=== PATIENT | female | born 1990 | race Caucasian/White ===

== ENCOUNTER 2017-07-24 10:23 | Emergency (ER) | payer MEDICAID, OTHER ==
[2017-07-24] MEDS ORDERED: ONDANSETRON 4 MG TAB.RAPDIS PO ONE (12:01)
[2017-07-24] MEDS ORDERED: NORMAL SALINE 1000 ML 1,000 ML IV ONE (12:04)
[2017-07-24 12:26] LABS: APPEARANCE,URINE SLIGHTLY-CLOUDY; BILIRUBIN,URINE NEGATIVE (NEGATIVE); GLUCOSE, URINE NEGATIVE (NEGATIVE); KETONES,URINE 80 mg/dL (NEGATIVE); LEUKOCYTE ESTERASE,URINE TRACE (NEGATIVE); NITRITE,URINE NEGATIVE (NEGATIVE); PROTEIN,URINE NEGATIVE (NEGATIVE); URINE SPECIFIC GRAVITY 1.023; UROBILINOGEN,URINE NEGATIVE mg/dL (<2.0)
--- NOTE | 2017-07-24 13:17 | ER Document Report ---
ED GI/ - General Chief Complaint: Vomiting Stated Complaint: VOMITING Time Seen by Provider: 07/24/17 11:59 Mode of Arrival: Ambulatory Information source: Patient Notes: Patient is a 27-year-old who presents at approximately 16 weeks for nausea and vomiting, dehydration. Patient was seen at [facility] this morning and they advised that she come here because she appeared dehydrated and needed IV fluids. Patient states that they just prescribed her Zofran this morning but that she has been taking Phenergan which is not been helping her nausea and vomiting. TRAVEL OUTSIDE OF THE [place] IN LAST 30 DAYS: No - Related Data Allergies/Adverse Reactions: No Known Allergies Allergy (Verified 07/24/17 10:51) Past Medical History - General Information source: Patient - Social History Smoking Status: Never Smoker Chew tobacco use (# tins/day): No Frequency of alcohol use: None Drug Abuse: None Family History: Reviewed & Not Pertinent Renal/ Medical History: Denies: Hx Peritoneal Dialysis Past Surgical History: Reports: Hx Oral Surgery, Hx Tonsillectomy - Immunizations Hx Diphtheria, Pertussis, Tetanus Vaccination: Yes Review of Systems - Review of Systems Constitutional: See HPI EENT: No symptoms reported Cardiovascular: No symptoms reported Respiratory: No symptoms reported Gastrointestinal: See HPI Genitourinary: No symptoms reported Female Genitourinary: See HPI Musculoskeletal: No symptoms reported Skin: No symptoms reported Hematologic/Lymphatic: No symptoms reported Neurological/Psychological: No symptoms reported Physical Exam - Vital signs Vitals: Temp Pulse Resp BP Pulse Ox 98.3 F 80 18 132/78 H 99 07/24/17 13:24 07/24/17 13:24 07/24/17 13:24 07/24/17 13:24 07/24/17 13:24 - Notes Notes: PHYSICAL EXAMINATION: GENERAL: Well-appearing and in no acute distress. HEAD: Atraumatic, normocephalic. EYES: Pupils equal round and reactive to light, extraocular movements intact, sclera anicteric, conjunctiva are normal. NECK: Normal range of motion, supple without lymphadenopathy LUNGS: CTAB and equal. No wheezes rales or rhonchi. HEART: Regular rate and rhythm without murmurs ABDOMEN: Soft, no tenderness. No guarding, no rebound BACK: no vertebral tenderness, normal ROM GI/: no CVA tenderness EXTREMITIES: Normal range of motion, no pitting edema. No cyanosis. NEUROLOGICAL: Cranial nerves grossly intact. Normal sensory/motor exams. PSYCH: Normal mood, normal affect. SKIN: Warm, Dry, normal turgor, no rashes or lesions noted Course - Re-evaluation Re-evalutation: 07/24/17 18:48 She has not vomited here in the emergency department at all. Patient feels better after IV fluids and Zofran,I will send her home with a prescription for Zofran. - Vital Signs Vital signs: Temp Pulse Resp BP Pulse Ox 98.3 F 80 18 132/78 H 99 07/24/17 13:24 07/24/17 13:24 07/24/17 13:24 07/24/17 13:24 07/24/17 13:24 - Laboratory Laboratory results interpreted by me: 07/24/17 12:00 Urine Ketones 80 H Ur Leukocyte Esterase TRACE H Discharge - Discharge Clinical Impression: Vomiting affecting Condition: Stable Disposition: HOME, SELF-CARE Instructions: Intravenous (IV) Fluids ([facility]), Vomiting ([facility]) Additional Instructions: Return immediately for any new or worsening symptoms. Drink plenty of fluids. Follow up with primary care provider, call tomorrow to make followup appointment. Prescriptions: Ondansetron [Zofran Odt 4 mg Tablet] 1 - 2 tab PO Q4H PRN #30 tab.rapdis PRN Reason: For Nausea/Vomiting Referrals: [facility] [Provider Group] - Follow up as needed
[2017-07-24 13:25] VITALS: BP 132/78
== END 2017-07-24 13:25 | disposition home or self-care (01) ==
LOC: ER 10:23
DX: O21.9 Vomiting of pregnancy, unspecified (principal); Z3A.00 Weeks of gestation of pregnancy not specified; Z79.899 Other long term (current) drug therapy
CPT/HCPCS: 99283; 96360; 81001; S0119; J7030

== ENCOUNTER 2017-12-19 14:10 | Outpatient (CLI) | payer OTHER | END 2017-12-19 14:50 | disposition home or self-care (01) | LOC: LC 14:10 | PROVIDERS: ATTEND Obstetrics & Gynecology Gynecology | PROC: 4A1HXCZ Monitoring of Products of Conception, Cardiac Rate, External Approach (ICD-10-PCS; principal; 2017-12-19) | DX: O24.419 Gestational diabetes mellitus in pregnancy, unspecified control (principal); Z3A.37 37 weeks gestation of pregnancy | CPT/HCPCS: 59025 ==

== ENCOUNTER 2017-12-20 22:45 | Outpatient (CLI) | payer OTHER ==
[2017-12-20 23:45] LABS: AMNISURE (ROM) NEGATIVE (NEGATIVE)
[2017-12-21 00:35] LABS: APPEARANCE,URINE CLOUDY; BILIRUBIN,URINE NEGATIVE (NEGATIVE); COLOR,URINE YELLOW; GLUCOSE, URINE NEGATIVE (NEGATIVE); KETONES,URINE 80 mg/dL (NEGATIVE); LEUKOCYTE ESTERASE,URINE TRACE (NEGATIVE); NITRITE,URINE NEGATIVE (NEGATIVE); PROTEIN,URINE 30 mg/dL (NEGATIVE)
[2017-12-21 00:46] LABS: URINE AMPHETAMINES SCREEN NEGATIVE; URINE BARBITURATES SCREEN NEGATIVE; URINE BENZODIAZEPINES SCREEN NEGATIVE; URINE COCAINE SCREEN NEGATIVE; URINE MARIJUANA (THC) SCREEN NEGATIVE; URINE METHADONE SCREEN NEGATIVE; URINE PHENCYCLIDINE SCREEN NEGATIVE
== END 2017-12-21 00:57 | disposition home or self-care (01) ==
LOC: LC 22:45
PROVIDERS: ATTEND Student in an Organized Health Care Education/Training Program
PROC: 4A1HXCZ Monitoring of Products of Conception, Cardiac Rate, External Approach (ICD-10-PCS; principal; 2017-12-20)
DX: O47.1 False labor at or after 37 completed weeks of gestation (principal); Z3A.37 37 weeks gestation of pregnancy
CPT/HCPCS: 59025; 80307; 81001; 84112

== ENCOUNTER 2017-12-23 21:42 | Inpatient (IN) | payer OTHER ==
--- NOTE | 2017-12-23 21:44 | Non Stress Test Report ---
Non Stress Test Datetime Report Generated by CPN: 12/23/2017 21:44 DEMOGRAPHIC EGA NST: 37.5 INDICATION Indication for Study: Ordered by Provider Indication for Study (NST) Other: GDM VITAL SIGNS Temperature - NST: 98.4 Pulse - NST: 83 RESP - NST: 18 NBPSYS NST: 125 NBPDIA NST: 66 URINE RESULTS Urine Protein, NST: Positive Urine Ketones - NST: Positive Urine Glucose - NST: Negative Urine Blood - NST: Negative MONITORING Monitor Explained: Monitor Explained; Test Explained; Patient Verbalized Understanding Monitor Explained: Monitor Explained; Test Explained; Patient Verbalized Understanding Time on Monitor: 12/20/2017 23:00 Time on Monitor: 12/19/2017 14:28 Time off Monitor: 12/21/2017 00:41 Time off Monitor: 12/19/2017 14:48 NST Duration: 101 NST Duration: 20 NST INTERVENTIONS NST Interventions: PO Hydration NST Interventions: None Physician Notified NST: Dr. Alan Physician Notified NST: J Senior CNM BABY A: [id number] BABY A Movement : Present Movement : Present Contraction Frequency : Irregular Contraction Frequency : 0 FHR Baseline : 150 FHR Baseline : 135 Accelerations : 15X15 Accelerations : 15X15 Decelerations : None Decelerations : None Variability : Moderate 6-25bpm Variability : Moderate 6-25bpm NST Review: Meets Criteria for Reactive NST NST Review: Meets Criteria for Reactive NST NST Review and Verified By : WALTER Cox Results: Reactive NST Results: Reactive NST REPORT Report Trigger: Send Report
[2017-12-23 22:12] LABS: APPEARANCE,URINE SLIGHTLY-CLOUDY; BILIRUBIN,URINE NEGATIVE (NEGATIVE); COLOR,URINE YELLOW; GLUCOSE, URINE NEGATIVE (NEGATIVE); KETONES,URINE NEGATIVE (NEGATIVE); LEUKOCYTE ESTERASE,URINE TRACE (NEGATIVE); NITRITE,URINE NEGATIVE (NEGATIVE); PROTEIN,URINE NEGATIVE (NEGATIVE); URINE SPECIFIC GRAVITY 1.004; UROBILINOGEN,URINE NEGATIVE mg/dL (<2.0)
[2017-12-23 22:22] LABS: UR PRO/CREAT RATIO RESULT 0.5 mg/mg (0.0-0.2); URINE AMPHETAMINES SCREEN NEGATIVE; URINE BARBITURATES SCREEN NEGATIVE; URINE BENZODIAZEPINES SCREEN NEGATIVE; URINE COCAINE SCREEN NEGATIVE; URINE CREATININE 31.4 mg/dL (16-327); URINE MARIJUANA (THC) SCREEN NEGATIVE; URINE METHADONE SCREEN NEGATIVE; URINE PHENCYCLIDINE SCREEN NEGATIVE; URINE PROTEIN 16.9 mg/dL (<12)
[2017-12-23 22:26] LABS: ABSOLUTE LYMPHOCYTES (AUTO) 2.1 10^3/uL (0.5-4.7); ABSOLUTE MONOCYTES (AUTO) 0.5 10^3/uL (0.1-1.4); ABSOLUTE NEUT (AUTO) 6.2 10^3/uL (1.7-8.2); BASOPHILS % (AUTO) 0.4 % (0-2); EOSINOPHILS % (AUTO) 0.3 % (0-6); HEMATOCRIT 33.1 % (36.0-47.0); HEMOGLOBIN 11.2 g/dL (12.0-15.5); MEAN CORPUSCULAR HEMOGLOBIN 28.1 pg (27.0-33.4); MEAN CORPUSCULAR HGB CONC 33.8 g/dL (32.0-36.0); MEAN CORPUSCULAR VOLUME 83 fl (80-97); MONOCYTES % (AUTO) 5.5 % (3-13); PLATELET COUNT 235 10^3/uL (150-450); RED BLOOD COUNT 3.98 10^6/uL (3.72-5.28); RED CELL DISTRIBUTION WIDTH 14.9 % (11.5-14.0); SEGMENTED NEUTROPHILS % (AUTO) 69.8 % (42-78); TOTAL CELLS COUNTED % (AUTO) 100 %; WHITE BLOOD COUNT 8.9 10^3/uL (4.0-10.5)
[2017-12-23 22:47] LABS: ALANINE AMINOTRANSFERASE 24 U/L (9-52); ALBUMIN 3.1 g/dL (3.5-5.0); ALKALINE PHOSPHATASE 115 U/L (38-126); ANION GAP 9 (5-19); ASPARTATE AMINO TRANSFERASE 16 U/L (14-36); BILIRUBIN,DIRECT 0.1 mg/dL (0.0-0.4); BILIRUBIN,TOTAL 0.2 mg/dL (0.2-1.3); BLOOD UREA NITROGEN 7 mg/dL (7-20); CALCIUM 9.9 mg/dL (8.4-10.2); CARBON DIOXIDE 21 mmol/L (22-30); CHLORIDE 106 mmol/L (98-107); GLUCOSE 116 mg/dL (75-110); LDH 442 U/L (313-618); POTASSIUM 3.8 mmol/L (3.6-5.0); SODIUM 136.2 mmol/L (137-145); TOTAL PROTEIN 5.6 g/dL (6.3-8.2)
[2017-12-23] MEDS ORDERED: MAGNESIUM SULFATE 4 GM/100 ML RTUPB IV ONE ×2 (22:54→23:00)
[2017-12-23] MEDS ORDERED: DINOPROSTONE 10 MG VAGINAL INSERT.SR PV PRN (22:57)
[2017-12-23] MEDS ORDERED: DINOPROSTONE 10 MG VAGINAL INSERT.SR ONE (23:00)
[2017-12-23] MEDS ORDERED: ACETAMINOPHEN 325 MG TABLET PO ONE (23:13)
[2017-12-23] MEDS ORDERED: ACETAMINOPHEN 325 MG TABLET ONE (23:15)
[2017-12-23] MEDS: MAGNESIUM SULFATE 20 GM/500 ML RTUINJ IV PRN (23:59)
[2017-12-24] MEDS: RINGERS SOLUTION,LACTATED 1,000 ML IV PRN
[2017-12-24] MEDS ORDERED: MAG HYDROX/AL HYDROX/SIMETH SUSP 30 ML UDCUP PO ONE (01:05)
[2017-12-24] MEDS ORDERED: MAG HYDROX/AL HYDROX/SIMETH SUSP 30 ML UDCUP ONE (01:11)
[2017-12-24] MEDS ORDERED: OXYCODONE-ACETAMINOPHEN 5-325 MG TABLET PO ONE (02:18)
[2017-12-24] MEDS ORDERED: OXYCODONE-ACETAMINOPHEN 5-325 MG TABLET ONE (02:22)
[2017-12-24] MEDS ORDERED: PROMETHAZINE HCL INJ 25 MG/1 ML VIAL IV ONE ×2 (02:56→03:03)
[2017-12-24] MEDS ORDERED: PROMETHAZINE HCL INJ 25 MG/1 ML VIAL ONE (02:59)
--- NOTE | 2017-12-24 02:59 | Admission Physical ---
Datetime Report Generated by CPN: 12/24/2017 02:59 CURRENT ADMISSION Chief Complaint: Other Chief Complaint Other: COY, swelling, elevated bp Indication for Induction: PreEclampsia Indication for Induction: Term, Intrauterine Admit Plan: Admit to Unit; Initiate Labor Induction Protocol ALLERGIES Medication Allergies: No Medication Allergies: No Known Allergies (12/23/2017) Latex: No Latex Allergies Food Allergies: None Environmental Allergies: None OBSTETRICAL HISTORY EDC: 01/05/2018 00:00 : 5 Para: 2 Term: 2 : 0 SAB: 2 IAB: 0 Livin Gestational Diabetes: Yes Rh Sensitization: No Incompetent Cervix: No ROBLES: No Infertility: No ART Treatment: No Uterine Anomaly: No IUGR: No Hx Previous C/S: No Macrosomia: Yes Hx Loss/Stillborn: No PIH: No Hx : No Placenta Previa/Abruption: No Depression/PP Depression: No PTL/PROM: No Post Hemorrhage: No Current Procedures: NST Obstetrical History Comments: G1- term baby boy 2008 G2- SAB 2010 G3- SAB 2011 G4- term baby boy 2013 G5- current, GDM diet controlled, obesity SEE RECORDS Alcohol: No Marijuana : No Cocaine: No Other Illicit Drugs: No Cigarettes: Never Smoker. [id number] MEDICAL HISTORY Diabetes: No Blood Transfusion: No Pulmonary Disease (Asthma, TB): No Breast Disease: No Hypertension: No [employer] Surgery: No Heart Disease: No Hosp/Surgery: No Autoimmune Disorder: No Anesthetic Complications: No Kidney Disease: No Abnormal Pap Smear: No Neuro/Epilepsy: No Psychiatric Disorders: No Other Medical Diseases: No Hepatitis/Liver Disease: No Significant Family History: No Varicosities/Phlebitis: No Trauma/Violence : No Thyroid Dysfunction: No INFECTIOUS HISTORY Gonorrhea: No Genital Herpes: No Chlamydia: No Tuberculosis: No Syphilis: No Hepatitis: No HIV/AIDS Exposure: No Rash or Viral Illness: No HPV: No PHYSICAL EXAM General: Normal HEENT: Normal Neurologic: Normal Thyroid: Normal Heart: Normal Lungs: Normal Breast: Deferred Back: Normal Abdomen: Normal Genitourinary Exam: Normal Extremities: Normal DTRs: Normal Pelvic Type: Adequate Vital Signs: Reviewed VAGINAL EXAM Dilatation: 0 Effacement: 0 MEMBRANES Pooling: Negative Membranes: Intact FETUS A EGA: 38.2 Monitoring: External US FHR- Baseline: 120 Variability: Minimal - Undetectable to <=5bpm Decelerations: None Presentation: Vertex Admit Comment: will treat head ache with phenergan PLANS FOR LABOR AND DELIVERY Labor and Delivery: None (Annotations: Data stored by [facility] on behalf of user) Pain Management: Epidural Feeding Preference: Formula Benefit of Breast Feed Discussed: Yes Circumcision: N/A INFORMED CONSENT Signature: with User ID: [email or web address]
[2017-12-24] MEDS ORDERED: ONDANSETRON HCL INJ/PF 4 MG/2 ML SDV IV PRN (09:25)
[2017-12-24] MEDS ORDERED: ONDANSETRON HCL INJ/PF 4 MG/2 ML SDV ONE (09:27)
[2017-12-24] MEDS ORDERED: OXYTOCIN/NORMAL SALINE 20 UNIT/1,000 ML RTUINJ IV PRN ×2 (12:16→21:10)
[2017-12-24] MEDS ORDERED: LIDOCAINE 1% INJ-PF (10 MG/ML) 30 ML SDV ONE (12:19)
[2017-12-24] MEDS ORDERED: OXYTOCIN/NORMAL SALINE 20 UNIT/1,000 ML RTUINJ ONE (12:19)
[2017-12-24] MEDS ORDERED: MISOPROSTOL 0.2 MG TABLET ONE (12:19)
--- NOTE | 2017-12-24 12:23 | L&D Progress Notes ---
PROGRESS NOTES Datetime Report Generated by CPN: 12/24/2017 12:22 PROGRESS NOTE Impression Other: IOL- pre-e stable Procedures: Sterile Vag Exam Plan: Continue Present Management; Induction Informed Consent Obtained: Vaginal Delivery; Induction of Labor; Risks, Benefits and Alternatives Discussed Vital Signs : Reviewed; Within Normal Limits Comment: S: feeling crampy, desires epidural for pain at some point. Denies headache, ruq pain or other concerns at this time O: VSS, cervidil removed, contractions and cervix as stated A: IOL @ [id number], progressing P: start pitocin induction at this time, epidural prn. Pt. asked questions and verbalized understanding. VAGINAL EXAM Dilatation: 3 Dilatation: 0 Effacement: 60 Effacement: 0 Station: -3 Contractions: 1.5-5 MEMBRANES Pooling: Negative Membranes: Intact FETUS A FHR - Baseline: 135 Monitoring: External US Decelerations: None FHR Category: Category I : 38.0 Presentation: Vertex SIGNATURE SIGNATURE: [id number];[id number];[id number] SIGNATURE: [id number];[id number] SIGNATURE: [id number] Assignment: Kenyatta Alan MD Signature: with User ID: Joseph : with User ID: Joseph
[2017-12-24 15:03] LABS: ABSOLUTE BASOPHILS # (AUTO) 0.1 10^3/uL (0.0-0.2); ABSOLUTE LYMPHOCYTES (AUTO) 1.3 10^3/uL (0.5-4.7); ABSOLUTE MONOCYTES (AUTO) 0.5 10^3/uL (0.1-1.4); ABSOLUTE NEUT (AUTO) 8.8 10^3/uL (1.7-8.2); BASOPHILS % (AUTO) 0.6 % (0-2); EOSINOPHILS % (AUTO) 0.1 % (0-6); HEMATOCRIT 32.2 % (36.0-47.0); HEMOGLOBIN 11.1 g/dL (12.0-15.5); LYMPHOCYTES % (AUTO) 12.5 % (13-45); MEAN CORPUSCULAR HEMOGLOBIN 28.3 pg (27.0-33.4); MEAN CORPUSCULAR HGB CONC 34.4 g/dL (32.0-36.0); MEAN CORPUSCULAR VOLUME 82 fl (80-97); MONOCYTES % (AUTO) 4.9 % (3-13); PLATELET COUNT 224 10^3/uL (150-450); RED BLOOD COUNT 3.92 10^6/uL (3.72-5.28); RED CELL DISTRIBUTION WIDTH 14.8 % (11.5-14.0); SEGMENTED NEUTROPHILS % (AUTO) 81.9 % (42-78); TOTAL CELLS COUNTED % (AUTO) 100 %; WHITE BLOOD COUNT 10.8 10^3/uL (4.0-10.5)
[2017-12-24] MEDS ORDERED: BUPIVACAINE HCL 0.25 % INJ/PF (2.5 MG/1 ML) 30 ML VIAL ONE (15:09)
[2017-12-24] MEDS ORDERED: FENTANYL/BUPIVACAINE/NS/PF 200 MCG/100 ML RTUINJ EPI ONE (15:09)
[2017-12-24] MEDS ORDERED: EPHEDRINE SULFATE INJ 50 MG/1 ML AMPULE ONE (15:09)
[2017-12-24 15:23] LABS: ALANINE AMINOTRANSFERASE 25 U/L (9-52); ALBUMIN 2.9 g/dL (3.5-5.0); ALKALINE PHOSPHATASE 130 U/L (38-126); ANION GAP 5 (5-19); ASPARTATE AMINO TRANSFERASE 17 U/L (14-36); BILIRUBIN,DIRECT 0.3 mg/dL (0.0-0.4); BILIRUBIN,TOTAL 0.4 mg/dL (0.2-1.3); BLOOD UREA NITROGEN 3 mg/dL (7-20); CALCIUM 7.4 mg/dL (8.4-10.2); CARBON DIOXIDE 21 mmol/L (22-30); CHLORIDE 109 mmol/L (98-107); GLUCOSE 78 mg/dL (75-110); LDH 447 U/L (313-618); POTASSIUM 3.7 mmol/L (3.6-5.0); SODIUM 134.7 mmol/L (137-145); TOTAL PROTEIN 5.6 g/dL (6.3-8.2); URIC ACID 5.3 mg/dL (2.5-6.2)
--- NOTE | 2017-12-24 16:41 | L&D Progress Notes ---
PROGRESS NOTES Datetime Report Generated by CPN: 12/24/2017 16:41 PROGRESS NOTE Impression Other: IOL- stable, progressing Procedures: Artificial ROM; Sterile Vag Exam Plan: Continue Present Management; Induction Informed Consent Obtained: Induction of Labor; Risks, Benefits and Alternatives Discussed Vital Signs : Reviewed; Within Normal Limits Vital Signs Comments: hypotensive after epidural, multiple doses of ephidrine, asymptomatic, baby tolerated well stable now Comment: S: reports relief of pain with epidural O: vss, cervix stable, pit @ 20mu/min, AROM-large amount of clear flood A: IUP @38.2 IOL for [id number], labs redrawn and also stable, continue IOL, reassess as clinically indicated or earlier prn. Dr. Alan in unit and aware of patient status VAGINAL EXAM Dilatation: 4 Effacement: 60 Station: -2 Contractions: 2-4 MEMBRANES Membranes: Ruptured Amniotic Fluid Color: Clear FETUS A FHR - Baseline: 140 Monitoring: External US Variability: Moderate 6-25bpm Decelerations: None FHR Category: Category I FETUS C SIGNATURE: [id number];[id number];[id number] Assignment: Kenyatta Alan MD Signature: with User ID: Joseph : with User ID: Joseph
[2017-12-24] MEDS ORDERED: GLYCERIN/WITCH HAZEL LEAF 1 EACH MED..PAD TP PRN (21:10)
[2017-12-24] MEDS ORDERED: PROMETHAZINE HCL 25 MG TABLET PO PRN (21:10)
[2017-12-24] MEDS ORDERED: BENZOCAINE/MENTHOL AEROSOL SPRAY 56 ML TOP PRN (21:10)
[2017-12-24] MEDS ORDERED: MEASLES,MUMPS&RUBELLA VACC/PF 0.5 ML VIAL SUBCUT PRN (21:10)
[2017-12-24] MEDS ORDERED: PROMETHAZINE HCL INJ 25 MG/1 ML VIAL IV PRN (21:10)
[2017-12-24] MEDS ORDERED: PROMETHAZINE HCL 25 MG SUPP.RECT PR PRN (21:10)
[2017-12-24] MEDS ORDERED: NA PHOS,M-B/NA PHOS,DI-BA (ADULT) 133 ML ENEMA PR PRN (21:10)
[2017-12-24] MEDS ORDERED: DIPHENHYDRAMINE HCL 25 MG CAPSULE PO PRN (21:10)
[2017-12-24] MEDS ORDERED: ZOLPIDEM TARTRATE 5 MG TABLET PO PRN (21:10)
[2017-12-24] MEDS ORDERED: DIBUCAINE 1% OINTMENT 28 GM TP PRN (21:10)
[2017-12-24] MEDS ORDERED: DIPH/PERTUSS(ACELL)/TETANUS VAC/PF 0.5 ML SYR (>=10YO) IM PRN (21:10)
[2017-12-24] MEDS ORDERED: PSEUDOEPHEDRINE HCL 30 MG TABLET PO PRN (21:10)
[2017-12-24] MEDS ORDERED: ACETAMINOPHEN 650 MG SUPP.RECT PR PRN (21:10)
[2017-12-24] MEDS ORDERED: ACETAMINOPHEN WITH CODEINE #3 TABLET PO PRN ×2 (21:10)
[2017-12-24] MEDS ORDERED: MAGNESIUM HYDROXIDE SUSP 30 ML UDCUP PO PRN (21:10)
[2017-12-24] MEDS ORDERED: ACETAMINOPHEN 325 MG TABLET ONE (21:23)
[2017-12-24] MEDS: IBUPROFEN 800 MG TABLET PO SCH (22:05)
[2017-12-24] MEDS: FAMOTIDINE 20 MG TABLET PO SCH (22:06)
[2017-12-24] MEDS ORDERED: FAMOTIDINE 20 MG TABLET ONE (22:07)
[2017-12-25] MEDS: MAGNESIUM SULFATE 20 GM/500 ML RTUINJ IV PRN (00:41)
--- NOTE | 2017-12-25 02:47 | Warning Signs in Babies ---
VOD Warning Signs Datetime Report Generated by [facility]: 12/25/2017 02:47 VOD#608 -Warning Signs in Babies: Needs to be viewed. (12/20/2017 22:47:Dulce Solomon)
[2017-12-25] MEDS: RINGERS SOLUTION,LACTATED 1,000 ML IV PRN (02:58)
[2017-12-25] MEDS: IBUPROFEN 800 MG TABLET PO SCH ×3 (06:21→21:25)
[2017-12-25] MEDS ORDERED: IBUPROFEN 800 MG TABLET ONE (06:21)
[2017-12-25 07:29] LABS: HEMATOCRIT 30.7 % (36.0-47.0); HEMOGLOBIN 10.2 g/dL (12.0-15.5); MEAN CORPUSCULAR HEMOGLOBIN 27.7 pg (27.0-33.4); MEAN CORPUSCULAR HGB CONC 33.3 g/dL (32.0-36.0); MEAN CORPUSCULAR VOLUME 83 fl (80-97); PLATELET COUNT 211 10^3/uL (150-450); RED BLOOD COUNT 3.69 10^6/uL (3.72-5.28); RED CELL DISTRIBUTION WIDTH 15.2 % (11.5-14.0); WHITE BLOOD COUNT 12.8 10^3/uL (4.0-10.5)
[2017-12-25] MEDS ORDERED: FAMOTIDINE 20 MG TABLET ONE (09:08)
[2017-12-25] MEDS ORDERED: DOCUSATE SODIUM 100 MG CAPSULE ONE (09:08)
[2017-12-25] MEDS ORDERED: PRENATAL VITAMIN W DHA CAPSULE PO ONE (09:08)
[2017-12-25] MEDS ORDERED: SENNOSIDES/DOCUSATE 8.6-50 MG 1 EACH TABLET ONE ×2 (09:08→09:27)
[2017-12-25] MEDS: PRENATAL VITAMIN W DHA CAPSULE PO SCH (09:21)
[2017-12-25] MEDS: DOCUSATE SODIUM 100 MG CAPSULE PO SCH ×2 (09:22→17:45)
[2017-12-25] MEDS: FAMOTIDINE 20 MG TABLET PO SCH ×2 (09:22→21:26)
[2017-12-25] MEDS: SENNOSIDES/DOCUSATE 8.6-50 MG 1 EACH TABLET PO SCH (09:26)
--- NOTE | 2017-12-25 14:39 | Delivery Summary ---
Del Sum A-C Datetime Report Generated by CPN: 12/25/2017 14:39 DELIVERY PERSONNEL DELIVERY PERSONNEL: [id number] Delivery Doctor:: Kenyatta Alan MD Labor and Delivery Nurse:: Dulce Solomon RN Labor and Delivery Nurse:: Glo Mancilla RN Nursery Nurse:: Yesy Curtis RN MSN [employer]er Sales/NICU RN: Kaycee Eli, ST MATERNAL INFORMATION Delivery Anesthesia: Epidural Medications During Delivery: cytotec [facility] [place] Medications After Delivery: Pitocin Bolus-Please Comment; Pitocin Drip 20 Units/1000ml NSS Meds After Delivery Comment: Pitocin 20 units in 1000mL NSS Estimated Blood Loss (ml): 350 Maternal Complications: Other Other Maternal Complications: Pre-eclampsia on magnesium sulfate Provider Comments: VFI delivered In Direct OA presentation with loose nuchal cord. Shoulders and body delivered without difficulty. Cord doubly clamped and cut. Infant to maternal abdomen for NRP. Placenta delivered intact spontaneously. FF at U. Good Hemostasis. No perineal laceration. Mother and baby stable upon provider leaving the room. LABOR SUMMARY EDC: 01/05/2018 00:00 No. Babies in Womb: 1 Attempted: No Labor Anesthesia: Epidural LABOR INFORMATION Reason for Induction: Pre-Eclampsia; Maternal Diabetes Onset of Labor: 12/24/2017 16:25 Complete Dilatation: 12/24/2017 20:26 Cervical Ripening Agents: Cervidil Oxytocin: Induction Group B Beta Strep: Negative Antibiotics # of Doses: n/a Antibiotics Time of Last Dose: n/a Name of Antibiotic Given: n/a Steroids Given: None Reason Steroids Not Administered: Not Applicable Other Reason Not Administered: n/a MEMBRANES Membranes Rupture Method: Artificial Rupture of Membranes: 12/24/2017 16:25 Length of Rupture (hr): 4.20 Amniotic Fluid Color: Clear Amniotic Fluid Amount: Large Amniotic Fluid Odor: Normal STAGES OF LABOR Stage 1 hr: 4 Stage 1 min: 1 Stage 2 hr: 0 Stage 2 min: 11 Stage 3 hr: 0 Stage 3 min: 3 Total Time in Labor hr: 4 Total Time in Labor min: 15 VAGINAL DELIVERY Episiotomy: None Laceration #1: None Laceration Extension #1: N/A Laceration Repair: Not Applicable Sponge Count Correct: Yes Sharps Count Correct: Yes CSECTION DELIVERY Primary Indication: N/A Secondary Indication: N/A CSection Incidence: N/A Labor: N/A Elective: N/A BABY A INFORMATION Infant Delivery Date/Time: 12/24/2017 20:37 Method of Delivery: Vaginal Born in Route : No : N/A Forceps: N/A Vacuum Extraction: N/A Shoulder Dystocia : No PRESENTATION/POSITION BABY A Presentation: Cephalic Cephalic Presentation: Vertex Vertex Position: Direct occipital anterior Breech Presentation: N/A PLACENTA INFORMATION BABY A Placenta Delivery Time : 12/24/2017 20:40 Placenta Method of Delivery: Spontaneous Placenta Status: Delivered SCORES BABY A Heart Rate 1 min: >100 bpm Resp Effort 1 min: Good Cry Reflex Irritability 1 min: Cough or Sneeze or Pulls Away Muscle Tone 1 min: Active Motion Color 1 min: Blue/Pale Resuscitation Effort 1 min: Tactile Stimulation SCORE 1 MIN: 8 Heart Rate 5 min: >100 bpm Resp Effort 5 min: Good Cry Reflex Irritability 5 min: Cough or Sneeze or Pulls Away Muscle Tone 5 min: Active Motion Color 5 min: Body [place], Extremities Blue Resuscitation Effort 5 min: Tactile Stimulation SCORE 5 MIN: 9 INFORMATION BABY A Gestational Age at Delivery: 38.2 Gestational Status: Early Term- 37- 38.6 Weeks Outcome : Liveborn Condition : Stable Sex: Female IDENTIFICATION BABY A Verification Date/Time: 12/24/2017 20:46 ID Band Number: [id number] Mother's Name Verified: Yes Infant RN Verifying : K Charo RN Additional Verifying Personnel: D Jose Luis US WEIGHT/LENGTH BABY A Birthweight (gm): 4100 Infant Weight (lb): 9 Infant Weight (oz): 1 Infant Length (in): 21.75 Infant Length (cm): 55.25 CORD INFORMATION BABY A No. Cord Vessels: 3 Nuchal Cord : Around Neck x1, Loose Cord Blood Taken: Yes-For Eval (Mom's Blood Type - or O+) Infant Suction: Mouth ASSESSMENT BABY A Complications: None Skin to Skin: Yes Skin to Skin Time (min): 15 Type Photography Supervisor/ALS Called : No Infant Care By: K. Curtis RN Transferred To: Remains with Mother BABY B INFORMATION : N/A SIGNATURES Signature: with User ID: [email or web address]
[2017-12-25] MEDS: FERROUS SULFATE 325 MG TABLET PO SCH ×2 (17:04→17:45)
[2017-12-26] MEDS: IBUPROFEN 800 MG TABLET PO SCH (05:29)
[2017-12-26 09:01] VITALS: BP 124/68
[2017-12-26] MEDS: FERROUS SULFATE 325 MG TABLET PO SCH (09:32)
[2017-12-26] MEDS: FAMOTIDINE 20 MG TABLET PO SCH (09:32)
[2017-12-26] MEDS: PRENATAL VITAMIN W DHA CAPSULE PO SCH (09:32)
[2017-12-26] MEDS: DOCUSATE SODIUM 100 MG CAPSULE PO SCH (09:32)
[2017-12-26] MEDS: SENNOSIDES/DOCUSATE 8.6-50 MG 1 EACH TABLET PO SCH (09:32)
--- NOTE | 2017-12-26 09:38 | PDOC PROGRESS REPORT ---
Subjective-OB Progress Note for:: 12/26/17 Physical Exam (OB) Vital Signs: Temp Pulse Resp BP Pulse Ox 97.8 F 63 20 124/68 100 12/26/17 07:45 12/26/17 07:45 12/26/17 07:45 12/26/17 07:45 12/26/17 07:45 Intake & Output 12/25/17 12/26/17 12/27/17 06:59 06:59 06:59 Intake Total 300 Balance 300 - General General Appearance: Appears well - PIH/Pre-Eclampsia DTR's: 1 + Clonus: Negative Headache: Absent Epigastric Pain: No Visual Changes: No - Lochia Lochia Amount: Small 10-25 ml Lochia Color: Rubra/Red - Abdomen Description: Tender, Soft, Round Hernia Present: No Fundal Description: Firm, Midline Fundal Height: u/u - u/2 - Extremities Calf: Normal Objective-Diagnostic Laboratory: 12/25/17 07:19 12/24/17 14:55 12/25/17 07:19 Blood Type O NEGATIVE
--- NOTE | 2017-12-26 09:44 | PDOC DISCHARGE SUMMARY ---
Final Diagnosis Discharge Date: 12/26/17 - Final Diagnosis (1) Pre-eclampsia Is this a current diagnosis for this admission?: Yes (2) Vaginal delivery Is this a current diagnosis for this admission?: Yes Discharge Data - Discharge Medication Prescriptions: Ibuprofen [Motrin 800 mg Tablet] 800 mg PO Q8 #90 tablet Home Medications: Pv W-O Vit A/Iron,Carbonyl/FA [Prenatabs Obn Tablet] 1 each PO DAILY 12/27/11 Ondansetron [Zofran Odt 4 mg Tablet] 1 - 2 tab PO Q4H PRN #30 tab.rapdis Ibuprofen [Motrin 800 mg Tablet] 800 mg PO Q8 #90 tablet 12/26/17 Vit/Dha [ Multi + Dha Capsule] 1 cap PO DAILY capsule Reason(s) for Admission: Onset of Labor Procedures: None Intrapartum Procedure(s): Spontaneous Vaginal Delivery - Diagnosis Test Laboratory: Temp Pulse Resp BP Pulse Ox 97.8 F 63 20 124/68 100 12/26/17 07:45 12/26/17 07:45 12/26/17 07:45 12/26/17 07:45 12/26/17 07:45 12/23/17 12/23/17 12/24/17 21:54 22:05 14:55 RBC 3.98 3.92 Hgb 11.2 L 11.1 L Hct 33.1 L 32.2 L Urine Opiates Screen NEGATIVE 12/25/17 07:19 RBC 3.69 L Hgb 10.2 L Hct 30.7 L Urine Opiates Screen - Discharge information/Instructions Discharge Activity: Activity As Tolerated, Balance Activity w/Rest, No Lifting/ Push/Pulling, Pelvic Rest, Slowly Increase Activity, No tub bath Discharge Diet: As Tolerated Disposition: HOME, SELF-CARE Follow up with: [facility] in: 6
== END 2017-12-26 11:22 | disposition home or self-care (01) | DRG 775 ==
LOC: LC 21:42 → LR 22:59 → 2S 12-25 12:10
PROVIDERS: ADMIT Student in an Organized Health Care Education/Training Program; ATTEND Student in an Organized Health Care Education/Training Program
PROC: 4A1HXCZ Monitoring of Products of Conception, Cardiac Rate, External Approach (ICD-10-PCS; 2017-12-24)
PROC: 10E0XZZ Delivery of Products of Conception, External Approach (ICD-10-PCS; principal; 2017-12-25)
PROC: 3E0234Z Introduction of Serum, Toxoid and Vaccine into Muscle, Percutaneous Approach (ICD-10-PCS; 2017-12-25)
DX: O14.94 Unspecified pre-eclampsia, complicating childbirth (principal); Z68.42 Body mass index [BMI] 45.0-49.9, adult; O69.81X0 Labor and delivery complicated by cord around neck, without compression, not applicable or unspecified; O24.420 Gestational diabetes mellitus in childbirth, diet controlled; O99.214 Obesity complicating childbirth; E66.9 Obesity, unspecified; Z29.13 Encounter for prophylactic Rho(D) immune globulin; Z37.0 Single live birth
CPT/HCPCS: 36415; 80053; 80307; 81001; 82570; 83615; 84156; 84550; 85025; 85027; 85461; 86592; 86850; 86900; 86901; 94760; J2405; J2550; J2590; J2790; J3475; J3490

== ENCOUNTER 2018-01-08 19:04 | Emergency (ER) | payer OTHER ==
[2018-01-08] MEDS ORDERED: LIDOCAINE 2% VISCOUS SOLN 20 ML UDCUP PO ONE (21:20)
[2018-01-08] MEDS ORDERED: MAG HYDROX/AL HYDROX/SIMETH SUSP 30 ML UDCUP PO ONE (21:20)
[2018-01-08] MEDS ORDERED: METOCLOPRAMIDE HCL ORAL SOLN 10 MG/10 ML UDCUP PO ONE (21:20)
--- NOTE | 2018-01-08 21:22 | ER Document Report ---
ED General - General Chief Complaint: Shortness Of Breath Stated Complaint: CHEST PAIN,SHORTNESS OF BREATH Time Seen by Provider: 01/08/18 20:58 Notes: Patient is a 27-year-old female that comes emergency department for chief complaint of chest pain. She states the pain is in the mid chest (she traces from her mid chest down towards her epigastric area), she states pain started just after she ate something, she states it feels like it radiates around to her back on both sides. She denies nausea or vomiting, shortness of breath, fever or chills. She denies history of the same. She is 2 weeks status post vaginal delivery, she is not breast-feeding. She denies smoking, she denies specific lower extremity swelling, she denies personal or family history of blood clots or heart disease. She denies any daily medication other than symptom management and stool softener currently. She has had no surgeries. TRAVEL OUTSIDE OF THE [place] IN LAST 30 DAYS: No - Related Data Allergies/Adverse Reactions: No Known Allergies Allergy (Verified 01/08/18 20:44) Past Medical History - General Information source: Patient - Social History Smoking Status: Never Smoker Frequency of alcohol use: None Drug Abuse: None Lives with: Family Family History: Reviewed & Not Pertinent Patient has suicidal ideation: No Patient has homicidal ideation: No - Medical History Medical History: Negative Renal/ Medical History: Denies: Hx Peritoneal Dialysis Past Surgical History: Reports: Hx Oral Surgery, Hx Tonsillectomy - Immunizations Hx Diphtheria, Pertussis, Tetanus Vaccination: Yes Review of Systems - Review of Systems Constitutional: No symptoms reported EENT: No symptoms reported Cardiovascular: See HPI Respiratory: See HPI Gastrointestinal: See HPI Genitourinary: No symptoms reported Female Genitourinary: No symptoms reported Musculoskeletal: No symptoms reported Skin: No symptoms reported Hematologic/Lymphatic: No symptoms reported Neurological/Psychological: No symptoms reported Physical Exam - Vital signs Vitals: Temp Pulse BP Pulse Ox 98.3 F 93 135/83 H 97 01/08/18 19:58 01/08/18 19:58 01/08/18 19:58 01/08/18 19:58 - General General appearance: Appears well In distress: None - HEENT Head: Normocephalic, Atraumatic Eyes: Normal Extraocular movements intact: Yes Eyelashes: Normal Pupils: PERRL Mouth/Lips: Normal Mucous membranes: Normal Pharynx: Normal Neck: Normal - Respiratory Respiratory status: No respiratory distress Breath sounds: Normal. No: Decreased air movement, Nonproductive cough, Wheezing - Cardiovascular Rhythm: Regular. No: Tachycardia Heart sounds: Normal auscultation, S1 appreciated, S2 appreciated Gallop: None auscultated Normal capillary refill: Yes - Abdominal Inspection: Normal Tenderness: Tender - Minimal reported tenderness with palpation of the upper abdomen in the epigastric area, no noted tenderness or guarding, remaining abdomen is benign - Back Back: Normal, Nontender. No: Tender - Extremities General upper extremity: Normal inspection, Nontender, Normal strength, Normal temperature General lower extremity: Normal inspection, Nontender, Normal strength, Normal temperature. No: Edema - Neurological Neuro grossly intact: Yes Cognition: Normal Orientation: AAOx4 [place] Coma Scale Eye Opening: Spontaneous [place] Coma Scale Verbal: Oriented [place] Coma Scale Motor: Obeys Commands Agustin Coma Scale Total: 15 Speech: Normal Motor strength normal: LUE, RUE, LLE, RLE Sensory: Normal - Psychological Associated symptoms: Normal affect, Normal mood - Skin Skin Temperature: Warm Skin Moisture: Dry Skin Color: Normal Course - Re-evaluation Re-evalutation: EKG unremarkable, chest x-ray unremarkable, CBC unremarkable, chemistry nonspecific, lipase is borderline. Patient does not have any significant epigastric tenderness on examination although she does trace from her mid chest down to her epigastric area as the area of discomfort. Worse when lying down. As result I suspect a gastrointestinal source, symptoms started just after eating. After treatment with a GI cocktail patient's symptoms significantly improved and almost resolved. I did discuss workup with patient, discussed different possibilities, I did discuss the possibility of pulmonary embolism but based on patient's vital signs, improvement with treatment, and presenting evaluation I have very low suspicion of this. After discussion decision was made to treat patient for upper abdominal source with follow-up recommendations and strict return precautions. Patient states satisfaction and agreement with plan. - Vital Signs Vital signs: Temp Pulse Resp BP Pulse Ox 98.5 F 93 20 128/72 H 98 01/08/18 23:20 01/08/18 19:58 01/08/18 23:21 01/08/18 23:22 01/08/18 23:21 - Laboratory Result Diagrams: 01/08/18 20:25 01/08/18 20:25 Laboratory results interpreted by me: 01/08/18 01/08/18 20:25 20:25 RDW 14.9 H AST 44 H ALT 62 H Lipase 358.0 H Discharge - Discharge Clinical Impression: Chest pain Qualifiers: Chest pain type: unspecified Qualified Code(s): R07.9 - Chest pain, unspecified Condition: Stable Disposition: HOME, SELF-CARE Additional Instructions: Your symptoms, workup, and evaluation are most consistent with a gastrointestinal source of your pain. I recommend that you take the Pepcid and Carafate as prescribed for the next several days, take ibuprofen cautiously ( only take with food). Follow-up with primary care for additional evaluation and management. Return if you worsen including vomiting, vomiting blood, black stools, severe pain, passing out, or any other concerning or worsening symptoms. Prescriptions: Famotidine [Pepcid 20 mg Tablet] 20 mg PO BID #20 tablet Sucralfate [Carafate 1 gm Tablet] 1 gm PO QID #20 tablet Referrals: [facility] DO [Primary Care Provider] - Follow up as needed
[2018-01-08 21:32] LABS: ABSOLUTE BASOPHILS # (AUTO) 0.1 10^3/uL (0.0-0.2); ABSOLUTE EOSINOPHILS # (AUTO) 0.1 10^3/uL (0.0-0.6); ABSOLUTE LYMPHOCYTES (AUTO) 2.1 10^3/uL (0.5-4.7); ABSOLUTE MONOCYTES (AUTO) 0.4 10^3/uL (0.1-1.4); ABSOLUTE NEUT (AUTO) 7.2 10^3/uL (1.7-8.2); EOSINOPHILS % (AUTO) 0.9 % (0-6); HEMATOCRIT 41.1 % (36.0-47.0); HEMOGLOBIN 13.7 g/dL (12.0-15.5); LYMPHOCYTES % (AUTO) 20.7 % (13-45); MEAN CORPUSCULAR HEMOGLOBIN 27.8 pg (27.0-33.4); MEAN CORPUSCULAR HGB CONC 33.3 g/dL (32.0-36.0); MEAN CORPUSCULAR VOLUME 83 fl (80-97); MONOCYTES % (AUTO) 4.3 % (3-13); PLATELET COUNT 327 10^3/uL (150-450); RED BLOOD COUNT 4.93 10^6/uL (3.72-5.28); RED CELL DISTRIBUTION WIDTH 14.9 % (11.5-14.0); SEGMENTED NEUTROPHILS % (AUTO) 73.1 % (42-78); TOTAL CELLS COUNTED % (AUTO) 100 %; WHITE BLOOD COUNT 9.9 10^3/uL (4.0-10.5)
[2018-01-08 21:35] LABS: ALANINE AMINOTRANSFERASE 62 U/L (9-52); ALBUMIN 4.1 g/dL (3.5-5.0); ALKALINE PHOSPHATASE 122 U/L (38-126); ANION GAP 8 (5-19); ASPARTATE AMINO TRANSFERASE 44 U/L (14-36); BILIRUBIN,DIRECT 0.4 mg/dL (0.0-0.4); BILIRUBIN,TOTAL 0.4 mg/dL (0.2-1.3); BLOOD UREA NITROGEN 16 mg/dL (7-20); CALCIUM 9.9 mg/dL (8.4-10.2); CARBON DIOXIDE 27 mmol/L (22-30); CHLORIDE 107 mmol/L (98-107); GLUCOSE 99 mg/dL (75-110); POTASSIUM 4.2 mmol/L (3.6-5.0); SODIUM 142.4 mmol/L (137-145); TOTAL PROTEIN 7.2 g/dL (6.3-8.2)
--- NOTE | 2018-01-08 21:42 | RADIOLOGY REPORT (SQ) ---
EXAM DESCRIPTION: CHEST PA/LAT COMPLETED DATE/TIME: 01/08/2018 9:33 pm REASON FOR STUDY: chest pain COMPARISON: 10/07/2009. EXAM PARAMETERS: NUMBER OF VIEWS: two views TECHNIQUE: Digital Frontal and Lateral radiographic views of the chest acquired. RADIATION DOSE: NA LIMITATIONS: none FINDINGS: LUNGS AND PLEURA: No opacities, masses or pneumothorax. No pleural effusion. MEDIASTINUM AND HILAR STRUCTURES: No masses or contour abnormalities. HEART AND VASCULAR STRUCTURES: Heart normal size. No evidence for failure. BONES: No acute findings. HARDWARE: None in the chest. OTHER: No other significant finding. IMPRESSION: NO SIGNIFICANT RADIOGRAPHIC FINDING IN THE CHEST. TECHNICAL DOCUMENTATION: JOB ID: [id number] [employer]- All Rights Reserved Reading location - IP/workstation name: [email or web address]
[2018-01-08] MEDS ORDERED: SUCRALFATE 1 GM TABLET PO ONE (22:47)
[2018-01-08 23:25] VITALS: BP 128/72
--- NOTE | 2018-01-09 08:04 | EKG REPORT ---
SEVERITY:- NORMAL ECG - SINUS RHYTHM : Confirmed by: Lion Lua MD 09-Jan-2018 08:03:46
== END 2018-01-08 23:25 | disposition home or self-care (01) ==
LOC: ER 19:04
DX: O90.89 Other complications of the puerperium, not elsewhere classified (principal); R07.9 Chest pain, unspecified; R10.811 Right upper quadrant abdominal tenderness
CPT/HCPCS: 93005; 99285; 36415; 83690; 85025; 80053; 71046; 93010; J3490

== ENCOUNTER 2018-01-26 15:17 | Emergency (ER) | payer OTHER ==
[2018-01-26] MEDS ORDERED: MAG HYDROX/AL HYDROX/SIMETH SUSP 30 ML UDCUP PO ONE (15:55)
[2018-01-26] MEDS ORDERED: LIDOCAINE 2% VISCOUS SOLN 20 ML UDCUP PO ONE (15:55)
[2018-01-26] MEDS ORDERED: HYDROCODONE/ACETAMINOPHEN 5-325 MG TABLET PO ONE (15:55)
--- NOTE | 2018-01-26 15:57 | ER Document Report ---
ED Medical Screen (RME) - General Chief Complaint: Chest Pain Stated Complaint: CHEST PAIN Time Seen by Provider: 01/26/18 15:50 Notes: This 27-year-old female patient who delivered on 12/24/2017 comes emergency room with epigastric abdominal pain. She was seen here on 01/08/2018 got a GI cocktail and was told she had GERD. She reports she gets the pain and it goes into her back. 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 Exam shows her to really be tender in the right upper quadrant and not so much in the epigastrium. I have greeted and performed a rapid initial assessment of this patient. A comprehensive ED assessment and evaluation of the patient, analysis of test results and completion of the medical decision making process will be conducted by additional ED providers. TRAVEL OUTSIDE OF THE [place] IN LAST 30 DAYS: No - Related Data Allergies/Adverse Reactions: No Known Allergies Allergy (Verified 01/26/18 15:56) Past Medical History - Social History Chew tobacco use (# tins/day): No Frequency of alcohol use: None Drug Abuse: None Renal/ Medical History: Denies: Hx Peritoneal Dialysis Past Surgical History: Reports: Hx Oral Surgery, Hx Tonsillectomy - Immunizations Hx Diphtheria, Pertussis, Tetanus Vaccination: Yes History of Influenza Vaccine for 07/2017 - 12/2017 Season: Yes Influenza Administration Date for 07/2017 - 12/2017 Season: 09/14/17 Physical Exam - Vital signs Vitals: Temp Pulse Resp BP Pulse Ox 97.7 F 84 18 147/87 H 99 01/26/18 15:31 01/26/18 15:31 01/26/18 15:31 01/26/18 15:31 01/26/18 15:31 Course - Vital Signs Vital signs: Temp Pulse Resp BP Pulse Ox 97.7 F 84 18 147/87 H 99 01/26/18 15:31 01/26/18 15:31 01/26/18 15:31 01/26/18 15:31 01/26/18 15:31
[2018-01-26 16:29] LABS: ABSOLUTE EOSINOPHILS # (AUTO) 0.1 10^3/uL (0.0-0.6); ABSOLUTE LYMPHOCYTES (AUTO) 1.6 10^3/uL (0.5-4.7); ABSOLUTE MONOCYTES (AUTO) 0.4 10^3/uL (0.1-1.4); ABSOLUTE NEUT (AUTO) 7.2 10^3/uL (1.7-8.2); BASOPHILS % (AUTO) 0.4 % (0-2); EOSINOPHILS % (AUTO) 0.7 % (0-6); HEMATOCRIT 37.8 % (36.0-47.0); HEMOGLOBIN 12.9 g/dL (12.0-15.5); LYMPHOCYTES % (AUTO) 16.8 % (13-45); MEAN CORPUSCULAR HEMOGLOBIN 27.9 pg (27.0-33.4); MEAN CORPUSCULAR HGB CONC 34.1 g/dL (32.0-36.0); MEAN CORPUSCULAR VOLUME 82 fl (80-97); MONOCYTES % (AUTO) 4.7 % (3-13); PLATELET COUNT 267 10^3/uL (150-450); RED BLOOD COUNT 4.63 10^6/uL (3.72-5.28); RED CELL DISTRIBUTION WIDTH 14.6 % (11.5-14.0); SEGMENTED NEUTROPHILS % (AUTO) 77.4 % (42-78); TOTAL CELLS COUNTED % (AUTO) 100 %; WHITE BLOOD COUNT 9.3 10^3/uL (4.0-10.5)
[2018-01-26 16:37] LABS: ALANINE AMINOTRANSFERASE 159 U/L (9-52); ALBUMIN 4.2 g/dL (3.5-5.0); ALKALINE PHOSPHATASE 137 U/L (38-126); ANION GAP 12 (5-19); ASPARTATE AMINO TRANSFERASE 209 U/L (14-36); BILIRUBIN,DIRECT 0.4 mg/dL (0.0-0.4); BILIRUBIN,TOTAL 0.7 mg/dL (0.2-1.3); BLOOD UREA NITROGEN 13 mg/dL (7-20); CALCIUM 9.7 mg/dL (8.4-10.2); CARBON DIOXIDE 26 mmol/L (22-30); CHLORIDE 107 mmol/L (98-107); GLUCOSE 104 mg/dL (75-110); LIPASE 60.6 U/L (23-300); POTASSIUM 4.1 mmol/L (3.6-5.0)
--- NOTE | 2018-01-26 17:58 | RADIOLOGY REPORT (SQ) ---
EXAM DESCRIPTION: U/S ABDOMEN LIMITED W/O DOP COMPLETED DATE/TIME: 01/26/2018 5:48 pm REASON FOR STUDY: RUQ abd pain COMPARISON: None. TECHNIQUE: Dynamic and static grayscale images acquired of the abdomen and recorded on PACS. Additio thomas selected color Doppler and spectral images recorded. LIMITATIONS: None. FINDINGS: PANCREAS: No masses. Visualized pancreatic duct normal caliber. LIVER: No masses. Echotexture normal. LIVER VASCULATURE: Normal directional flow of the main portal vein and hepatic veins. GALLBLADDER: No stones. Normal wall thickness. No pericholecystic fluid. ULTRASOUND-DETECTED AGUILAR'S SIGN: Negative. INTRAHEPATIC DUCTS AND COMMON DUCT: CBD and intrahepatic ducts normal caliber. No filling defects. INFERIOR VENA CAVA: Normal flow. AORTA: No aneurysm. RIGHT KIDNEY: Normal size. Normal echogenicity. No solid or suspicious masses. No hydronephrosis. No calcifications. PERITONEAL AND RIGHT PLEURAL SPACE: No ascites or effusions. OTHER: No other significant findings. IMPRESSION: NORMAL RIGHT UPPER QUADRANT ULTRASOUND. TECHNICAL DOCUMENTATION: JOB ID: [id number] [employer]- All Rights Reserved Reading location - IP/workstation name: [email or web address]
--- NOTE | 2018-01-26 18:11 | ER Document Report ---
ED GI/ - General Chief Complaint: Chest Pain Stated Complaint: CHEST PAIN Time Seen by Provider: 01/26/18 15:50 Notes: The patient is a 27 yo, 4 weeks post- from an induced vaginal delivery because of preeclampsia, presents with increasing right upper quadrant and epigastric abdominal pain and substernal chest burning. She was seen in the ER 2 weeks ago for similar symptoms. She is taking a H2 perez and sulfocate with some relief of her symptoms. Patient denies blurry vision, seizures, fevers, headache, nausea, vomiting, urinary symptoms, diarrhea, constipation, vaginal bleeding or discharge. TRAVEL OUTSIDE OF THE [place] IN LAST 30 DAYS: No - Related Data Allergies/Adverse Reactions: No Known Allergies Allergy (Verified 01/26/18 15:56) Past Medical History - General Information source: Patient - Social History Smoking Status: Never Smoker Chew tobacco use (# tins/day): No Frequency of alcohol use: None Drug Abuse: None Family History: Reviewed & Not Pertinent Patient has suicidal ideation: No Patient has homicidal ideation: No Renal/ Medical History: Denies: Hx Peritoneal Dialysis Past Surgical History: Reports: Hx Oral Surgery, Hx Tonsillectomy - Immunizations Hx Diphtheria, Pertussis, Tetanus Vaccination: Yes Review of Systems - Review of Systems Notes: REVIEW OF SYSTEMS: CONSTITUTIONAL: -fevers, -chills EENT: -eye pain, -difficulty swallowing, -nasal congestion CARDIOVASCULAR: +substernal chest pain, -syncope. RESPIRATORY: -cough, +SOB GASTROINTESTINAL: +upper abdominal pain, -nausea, -vomiting, -diarrhea GENITOURINARY: -dysuria, -hematuria MUSCULOSKELETAL: -back pain, -neck pain SKIN: -rash or skin lesions. HEMATOLOGIC: -easy bruising or bleeding. LYMPHATIC: -swollen, enlarged glands. NEUROLOGICAL: -altered mental status or loss of consciousness, -headache, - neurologic symptoms PSYCHIATRIC: -anxiety, -depression. ALL OTHER SYSTEMS REVIEWED AND NEGATIVE. Physical Exam - Vital signs Vitals: Temp Pulse Resp BP Pulse Ox 97.7 F 84 18 147/87 H 99 01/26/18 15:31 01/26/18 15:31 01/26/18 15:31 01/26/18 15:31 01/26/18 15:31 - Notes Notes: PHYSICAL EXAMINATION: GENERAL: Well-appearing, well-nourished and in no acute distress. HEAD: Atraumatic, normocephalic. EYES: Pupils equal round and reactive to light, extraocular movements intact, sclera anicteric, conjunctiva are normal. ENT: nares patent, oropharynx clear without exudates. Moist mucous membranes. NECK: Normal range of motion, supple without lymphadenopathy LUNGS: Breath sounds clear to auscultation bilaterally and equal. No wheezes rales or rhonchi. HEART: Regular rate and rhythm without murmurs ABDOMEN: Soft, mild RUQ and epigastric tenderness, normoactive bowel sounds. No guarding, no rebound. No masses appreciated. EXTREMITIES: Normal range of motion, no pitting or edema. No cyanosis. NEUROLOGICAL: Cranial nerves grossly intact. Normal speech, normal gait. Normal sensory and motor exams. PSYCH: Normal mood, normal affect. SKIN: Warm, Dry, normal turgor, no rashes or lesions noted. Course - Re-evaluation Re-evalutation: Patient appears well. She has new elevation of her LFTs, but no acute findings on ultrasound. Concern for preeclampsia with initial hypertension on triage and elevated LFTs, but she has no protein in her urine and her hypertension resolved while she was in the room. She is in no respiratory distress, lungs are clear and she is satting 98% on room air. She is PERC negative. Instructed patient to begin a PPI and follow-up with the GI doctor for further evaluation of her LFTs. Given very strict return precautions and she understands. - Vital Signs Vital signs: Temp Pulse Resp BP Pulse Ox 97.7 F 96 16 121/73 98 01/26/18 15:31 01/26/18 18:50 01/26/18 18:50 01/26/18 18:50 01/26/18 18:50 - Laboratory Result Diagrams: 01/26/18 16:04 01/26/18 16:04 Laboratory results interpreted by me: 01/26/18 01/26/18 01/26/18 16:04 16:04 17:34 RDW 14.6 H AST 209 H ALT 159 H Alkaline Phosphatase 137 H Urine Blood SMALL H Ur Leukocyte Esterase TRACE H - Diagnostic Test Radiology reviewed: Image reviewed, Reports reviewed Radiology results interpreted by me: RUQ US: Normal Discharge - Discharge Clinical Impression: Elevated LFTs Abdominal pain Qualifiers: Abdominal location: right upper quadrant Qualified Code(s): R10.11 - Right upper quadrant pain Condition: Stable Disposition: HOME, SELF-CARE Additional Instructions: Take the Prilosec as directed follow-up with the GI doctor for further evaluation and treatment. Gastritis You have an inflammation of the stomach called gastritis. This commonly causes upper abdominal pain, nausea, and vomiting. In severe cases, bleeding of the stomach lining can occur. Gastritis can be caused by bacteria or viruses , alcohol, or stomach-irritating drugs. Begin with sips of clear liquids. Take increasing amounts of fluid over the first 24 hours. Then start small amounts of bland foods (such as dry toast , applesauce, mashed potato). Gradually resume your usual diet. You should take antacids every two hours until the pain has subsided. Acid -suppressing drugs may be prescribed as well. Avoid aspirin, caffeine, tobacco , and alcohol. If the abdominal pain worsens, or there is evidence of major bleeding in the stomach (such as black, tarry stool, bloody or black vomit, or lightheadedness), you should return immediately. Call the doctor if you aren't improved in 24 to 36 hours. Prescriptions: Omeprazole Magnesium [Prilosec Otc] 20 mg PO Q12H #14 tablet.dr Referrals: FREDERIC LARSON MD [ACTIVE STAFF] - Follow up as needed
[2018-01-26 18:38] LABS: APPEARANCE,URINE SLIGHTLY-CLOUDY; BILIRUBIN,URINE NEGATIVE (NEGATIVE); COLOR,URINE YELLOW; GLUCOSE, URINE NEGATIVE (NEGATIVE); KETONES,URINE NEGATIVE (NEGATIVE); LEUKOCYTE ESTERASE,URINE TRACE (NEGATIVE); NITRITE,URINE NEGATIVE (NEGATIVE); PROTEIN,URINE NEGATIVE (NEGATIVE); URINE SPECIFIC GRAVITY 1.008; UROBILINOGEN,URINE NEGATIVE mg/dL (<2.0)
[2018-01-26 19:01] VITALS: BP 121/73
--- NOTE | 2018-01-27 08:21 | EKG REPORT ---
SEVERITY:- ABNORMAL ECG - SINUS RHYTHM INCOMPLETE RIGHT BUNDLE BRANCH BLOCK : Confirmed by: Lion Lua MD 27-Jan-2018 08:20:40
== END 2018-01-26 19:15 | disposition home or self-care (01) ==
LOC: ER 15:17
DX: O90.89 Other complications of the puerperium, not elsewhere classified (principal); R10.11 Right upper quadrant pain; R79.89 Other specified abnormal findings of blood chemistry; R07.2 Precordial pain; R03.0 Elevated blood-pressure reading, without diagnosis of hypertension
CPT/HCPCS: 93005; 99285; 36415; 83690; 85025; 80053; 81001; 76705; 93010; J3490

== ENCOUNTER 2018-01-27 05:14 | Inpatient (IN) | payer OTHER ==
[2018-01-27] MEDS ORDERED: NORMAL SALINE 1000 ML 1,000 ML IV ONE ×2 (06:51→08:06)
[2018-01-27] MEDS ORDERED: FAMOTIDINE INJ/PF 20 MG/2 ML SDV IV ONE (06:52)
[2018-01-27] MEDS ORDERED: METOCLOPRAMIDE HCL INJ/PF 10 MG/2 ML SDV IV ONE (06:52)
[2018-01-27] MEDS ORDERED: DICYCLOMINE HCL INJ 20 MG/2 ML AMPULE IM ONE (06:52)
[2018-01-27 07:06] LABS: ABSOLUTE LYMPHOCYTES (AUTO) 1.1 10^3/uL (0.5-4.7); ABSOLUTE MONOCYTES (AUTO) 0.3 10^3/uL (0.1-1.4); ABSOLUTE NEUT (AUTO) 5.8 10^3/uL (1.7-8.2); BASOPHILS % (AUTO) 0.4 % (0-2); EOSINOPHILS % (AUTO) 0.4 % (0-6); HEMATOCRIT 38.8 % (36.0-47.0); LYMPHOCYTES % (AUTO) 15.1 % (13-45); MEAN CORPUSCULAR HEMOGLOBIN 27.4 pg (27.0-33.4); MEAN CORPUSCULAR HGB CONC 33.4 g/dL (32.0-36.0); MEAN CORPUSCULAR VOLUME 82 fl (80-97); MONOCYTES % (AUTO) 3.6 % (3-13); PLATELET COUNT 261 10^3/uL (150-450); RED BLOOD COUNT 4.73 10^6/uL (3.72-5.28); RED CELL DISTRIBUTION WIDTH 14.6 % (11.5-14.0); SEGMENTED NEUTROPHILS % (AUTO) 80.5 % (42-78); TOTAL CELLS COUNTED % (AUTO) 100 %; WHITE BLOOD COUNT 7.2 10^3/uL (4.0-10.5)
--- NOTE | 2018-01-27 07:10 | ER Document Report ---
ED General - General Chief Complaint: Chest Pain Stated Complaint: CHEST PAIN Time Seen by Provider: 01/27/18 06:22 TRAVEL OUTSIDE OF THE [place] IN LAST 30 DAYS: No - HPI Patient complains to provider of: Epigastric right upper quadrant abdominal pain Notes: Patient coming in for evaluation of epigastric right upper quadrant abdominal pain. Patient was recently seen approximate 12 hours ago for similar pain. Patient at that time elevation in her LFTs however no other concerning pathology. Patient was discharged home. Patient states upon arriving home is able tolerate water however pain intensified before she came into the ER for further evaluation. Patient denies any other past medical history denies any alcohol. Patient denies any fevers chills - Related Data Allergies/Adverse Reactions: No Known Allergies Allergy (Verified 01/26/18 15:56) Past Medical History - Social History Smoking Status: Never Smoker Family History: Reviewed & Not Pertinent Patient has suicidal ideation: No Patient has homicidal ideation: No Renal/ Medical History: Denies: Hx Peritoneal Dialysis Past Surgical History: Reports: Hx Oral Surgery, Hx Tonsillectomy - Immunizations Hx Diphtheria, Pertussis, Tetanus Vaccination: Yes Review of Systems - Review of Systems Constitutional: No symptoms reported EENT: No symptoms reported Cardiovascular: No symptoms reported Respiratory: No symptoms reported Gastrointestinal: Abdominal pain, Nausea, Vomiting Genitourinary: No symptoms reported Female Genitourinary: No symptoms reported Musculoskeletal: No symptoms reported Skin: No symptoms reported Hematologic/Lymphatic: No symptoms reported Neurological/Psychological: No symptoms reported -: Yes All other systems reviewed and negative Physical Exam - Vital signs Vitals: Temp Pulse Resp BP Pulse Ox 97.8 F 106 H 20 158/79 H 100 01/27/18 08:39 01/27/18 08:39 01/27/18 08:39 01/27/18 08:39 01/27/18 08:39 Interpretation: Normal - General General appearance: Appears well, Alert - HEENT Head: Normocephalic, Atraumatic Eyes: Normal Pupils: PERRL - Respiratory Respiratory status: No respiratory distress Chest status: Nontender Breath sounds: Normal Chest palpation: Normal - Cardiovascular Rhythm: Regular Heart sounds: Normal auscultation Murmur: No - Abdominal Inspection: Normal Distension: No distension Bowel sounds: Normal Tenderness: Tender - Epigastric to right upper quadrant tenderness mild to moderate no Cruz sign. No: Cruz's sign Organomegaly: No organomegaly - Back Back: Normal, Nontender - Extremities General upper extremity: Normal inspection, Nontender, Normal color, Normal ROM , Normal temperature General lower extremity: Normal inspection, Nontender, Normal color, Normal ROM , Normal temperature, Normal weight bearing. No: Ayden's sign - Neurological Neuro grossly intact: Yes Cognition: Normal Orientation: AAOx4 Agustin Coma Scale Eye Opening: Spontaneous Agustin Coma Scale Verbal: Oriented [place] Coma Scale Motor: Obeys Commands Agustin Coma Scale Total: 15 Speech: Normal Motor strength normal: LUE, RUE, LLE, RLE Sensory: Normal - Psychological Associated symptoms: Normal affect, Normal mood - Skin Skin Temperature: Warm Skin Moisture: Dry Skin Color: Normal Course - Re-evaluation Re-evalutation: 01/27/18 08:38 Patient laboratory studies are returned showing continued elevation in LFTs along with elevation in her lipase consistent with pancreatitis. Patient continues to vomit. Will obtain a CT scan also add on LDH and triglycerides for further evaluation of this underlying pancreatitis. 01/27/18 14:39 CT scan showed acute cholecystitis. Nontender surgeon compensation and benefits manager recommend Zosyn for antibiotic coverage until we can arrive at bedside. Patient was evaluated by surgeon and will be admitted to his service for further evaluation of acute cholecystitis pancreatitis. - Vital Signs Vital signs: Temp Pulse Resp BP Pulse Ox 97.8 F 106 H 20 158/79 H 100 01/27/18 08:39 01/27/18 08:39 01/27/18 08:39 01/27/18 08:39 01/27/18 08:39 - Laboratory Result Diagrams: 01/27/18 06:00 01/27/18 06:00 Laboratory results interpreted by me: 01/27/18 01/27/18 01/27/18 06:00 06:00 06:00 RDW 14.6 H Seg Neutrophils % 80.5 H Glucose 126 H Total Bilirubin 1.4 H Direct Bilirubin 1.0 H AST 575 H ALT 577 H Alkaline Phosphatase 190 H Lactate Dehydrogenase 1914 H Lipase 6649.2 H Urine Blood Ur Leukocyte Esterase Salicylates Acetaminophen 01/27/18 01/27/18 06:00 09:51 RDW Seg Neutrophils % Glucose Total Bilirubin Direct Bilirubin AST ALT Alkaline Phosphatase Lactate Dehydrogenase Lipase Urine Blood MODERATE H Ur Leukocyte Esterase TRACE H Salicylates < 1.0 L Acetaminophen < 10 L Discharge - Discharge Clinical Impression: Acute cholecystitis Acute pancreatitis Qualifiers: Pancreatitis type: other Acute pancreatitis complication: unspecified Qualified Code(s): K85.80 - Other acute pancreatitis without necrosis or infection Condition: Good Disposition: ADMITTED INPATIENT Admitting Provider: Surgicalist Unit Admitted: Surgical Floor
[2018-01-27 07:24] LABS: ALANINE AMINOTRANSFERASE 577 U/L (9-52); ALKALINE PHOSPHATASE 190 U/L (38-126); ANION GAP 10 (5-19); ASPARTATE AMINO TRANSFERASE 575 U/L (14-36); BILIRUBIN,TOTAL 1.4 mg/dL (0.2-1.3); BLOOD UREA NITROGEN 14 mg/dL (7-20); CALCIUM 9.4 mg/dL (8.4-10.2); CARBON DIOXIDE 25 mmol/L (22-30); CHLORIDE 107 mmol/L (98-107); GLUCOSE 126 mg/dL (75-110); POTASSIUM 4.2 mmol/L (3.6-5.0); SODIUM 142.3 mmol/L (137-145); TOTAL PROTEIN 7.1 g/dL (6.3-8.2)
[2018-01-27 07:40] LABS: LIPASE 6649.2 U/L (23-300)
[2018-01-27] MEDS ORDERED: MORPHINE SULFATE 10 MG/ML INJ IV ONE (08:10)
[2018-01-27] MEDS ORDERED: DIPHENHYDRAMINE HCL 50 MG/ML VIAL IV ONE (08:10)
--- NOTE | 2018-01-27 08:20 | EKG REPORT ---
SEVERITY:- ABNORMAL ECG - SINUS RHYTHM IRBBB : Confirmed by: Lion Lua MD 27-Jan-2018 08:20:28
[2018-01-27 08:34] LABS: LDH 1914 U/L (313-618); TRIGLYCERIDES 60 mg/dL (<150)
[2018-01-27 08:38] LABS: ACETAMINOPHEN < 10 ug/mL (10-30); ALCOHOL < 10 mg/dL (NONE DETECTED); SALICYLATE < 1.0 mg/dL (2.0-20.0)
[2018-01-27 10:08] LABS: AMORPHOUS SEDIMENT,URINE TRACE /HPF; APPEARANCE,URINE SLIGHTLY-CLOUDY; BILIRUBIN,URINE NEGATIVE (NEGATIVE); COLOR,URINE YELLOW; GLUCOSE, URINE NEGATIVE (NEGATIVE); KETONES,URINE NEGATIVE (NEGATIVE); LEUKOCYTE ESTERASE,URINE TRACE (NEGATIVE); NITRITE,URINE NEGATIVE (NEGATIVE); PROTEIN,URINE NEGATIVE (NEGATIVE); URINE SPECIFIC GRAVITY 1.002; UROBILINOGEN,URINE NEGATIVE mg/dL (<2.0)
[2018-01-27 10:19] LABS: URINE AMPHETAMINES SCREEN NEGATIVE; URINE BARBITURATES SCREEN NEGATIVE; URINE BENZODIAZEPINES SCREEN NEGATIVE; URINE COCAINE SCREEN NEGATIVE; URINE MARIJUANA (THC) SCREEN NEGATIVE; URINE METHADONE SCREEN NEGATIVE; URINE PHENCYCLIDINE SCREEN NEGATIVE
--- NOTE | 2018-01-27 10:43 | RADIOLOGY REPORT (SQ) ---
EXAM DESCRIPTION: CT ABD/PELVIS WITH IV ORAL COMPLETED DATE/TIME: 01/27/2018 10:14 am REASON FOR STUDY: epigastric pain COMPARISON: None. TECHNIQUE: CT scan of the abdomen and pelvis performed using helical scanning technique with dynamic intravenous contrast injection. No oral contrast. Images reviewed with lung, soft tissue, and bone windows. Reconstructed coronal and sagittal MPR images reviewed. Delayed images for evaluation of the urinary system also acquired. All images stored on PACS. All CT scanners at this facility use dose modulation, iterative reconstruction, and/or weight based d osing when appropriate to reduce radiation dose to as low as reasonably achievable (ALARA). [facility]: Dose Right [facility]: CareDose [facility]: Dose Right [facility]: Teradose 4D [facility]: AbleSky CONTRAST TYPE AND DOSE: contrast/concentration: Isovue 370.00 mg/ml; Total Contrast Delivered: 100.0 ml; Total Saline Delivered: 72.0 ml RENAL FUNCTION: None required. The patient is less than 50 years old. RADIATION DOSE: CT Rad equipment meets quality standard of care and radiation dose reduction techniq ues were employed. CTDIvol: 19.1 - 20.5 mGy. DLP: 2137 mGy-cm.. LIMITATIONS: None. FINDINGS: LOWER CHEST: No significant findings. No nodules or infiltrates. LIVER: Mild hepatic steatosis. No masses. No dilated ducts. SPLEEN: Normal size. No focal lesions. PANCREAS: No masses. No significant calcifications. No adjacent inflammation or peripancreatic fluid collections. Pancreatic duct not dilated. GALLBLADDER: Gallbladder wall thickening and surrounding stranding compatible with acute cholecystiti s. ADRENAL GLANDS: No significant masses or asymmetry. RIGHT KIDNEY AND URETER: No solid masses. No significant calcifications. No hydronephrosis or hyd roureter. LEFT KIDNEY AND URETER: No solid masses. No significant calcifications. No hydronephrosis or hydr oureter. AORTA AND VESSELS: No aneurysm. No dissection. Renal arteries, SMA, celiac without stenosis. RETROPERITONEUM: No retroperitoneal adenopathy, hemorrhage or masses. BOWEL AND PERITONEAL CAVITY: No masses or inflammatory changes. No free fluid or peritoneal masses. APPENDIX: Not visualized. PELVIS: No mass. No free fluid. Normal bladder. ABDOMINAL WALL: No masses. Small fat containing periumbilical hernia. BONES: No significant or acute findings. OTHER: No other significant finding. IMPRESSION: CT FINDINGS COMPATIBLE WITH ACUTE CHOLECYSTITIS. SURGICAL CONSULTATION RECOMMENDED. TECHNICAL DOCUMENTATION: JOB ID: [id number] Quality ID # [id number]: Final reports with documentation of one or more dose reduction techniques (e.g., Au tomated exposure control, adjustment of the mA and/or kV according to patient size, use of iterative reconstruction technique) 2010 [employer]- All Rights Reserved Reading location - IP/workstation name: [email or web address]
[2018-01-27] MEDS ORDERED: AMPICILLIN SOD/SULBACTAM 3 GM VIAL IV ONE (10:59)
[2018-01-27] MEDS ORDERED: PIPERACILLIN/TAZOBACTAM 4.5 GM VIAL IV ONE (11:01)
--- NOTE | 2018-01-27 13:47 | PDOC H&P ---
History of Present Illness Admission Date/PCP: 01/27/18 Patient complains of: epigastric and RUQ abdominal pain with nausea and vomiting History of Present Illness: EDMUNDO BRADY is a 27 year old female with a 2 week hx of epigastric and right upper quadrant pain associated with intense nausea. Patient came to ER yesterday and a negative US of GB was done; however, her liver profile demonstrated transaminitis with elevated alkaline phosphatase and nomal total bilirubin/lipase. Today, the patient experienced increasing symptoms, bilious emesis, and she presented to the ER. A CT scan A/P was done with evidence of acute cholecystitis and worsening of the LFT's (total bilirubin elevated to 1.4 ) and lipase > 6K. Past Surgical History Past Surgical History: Reports: Tonsillectomy Social History Smoking Status: Never Smoker Hx Recreational Drug Use: No Hx Prescription Drug Abuse: No Family History Family History: Reviewed & Not Pertinent Parental Family History Reviewed: No Children Family History Reviewed: No Sibling(s) Family History Reviewed.: No Medication/Allergy Home Medications: Vit/Dha [ Multi + Dha Capsule] 1 cap PO DAILY capsule Famotidine [Pepcid 20 mg Tablet] 20 mg PO BID #20 tablet 01/08/18 Sucralfate [Carafate 1 gm Tablet] 1 gm PO QID #20 tablet 01/08/18 Omeprazole Magnesium [Prilosec Otc] 20 mg PO Q12H #14 tablet. 01/26/18 Allergies/Adverse Reactions: No Known Allergies Allergy (Verified 01/26/18 15:56) Physical Exam Vital Signs: Temp Pulse Resp BP Pulse Ox 97.8 F 106 H 20 158/79 H 100 01/27/18 08:39 01/27/18 08:39 01/27/18 08:39 01/27/18 08:39 01/27/18 08:39 Intake & Output 01/26/18 01/27/18 01/28/18 06:59 06:59 06:59 Weight 116.8 kg General appearance: PRESENT: mild distress Eye exam: PRESENT: EOMI Mouth exam: PRESENT: dry mucosa Neck exam: PRESENT: full ROM Respiratory exam: PRESENT: clear to auscultation epi Cardiovascular exam: PRESENT: RRR GI/Abdominal exam: PRESENT: Cruz's sign, normal bowel sounds, tenderness - epigatric and RUQ tenderness, other - obese, no scars noted Extremities exam: PRESENT: full ROM Musculoskeletal exam: PRESENT: full ROM Neurological exam: PRESENT: alert, altered, CN II-XII grossly intact Results Laboratory Results: 01/27/18 06:00 01/27/18 06:00 01/27/18 01/27/18 01/27/18 06:00 06:00 06:00 WBC 7.2 RBC 4.73 Hgb 13.0 Hct 38.8 MCV 82 MCH 27.4 MCHC 33.4 RDW 14.6 H Plt Count 261 Seg Neutrophils % 80.5 H Lymphocytes % 15.1 Monocytes % 3.6 Eosinophils % 0.4 Basophils % 0.4 Absolute Neutrophils 5.8 Absolute Lymphocytes 1.1 Absolute Monocytes 0.3 Absolute Eosinophils 0.0 Absolute Basophils 0.0 Sodium 142.3 Potassium 4.2 Chloride 107 Carbon Dioxide 25 Anion Gap 10 BUN 14 Creatinine 0.83 Est GFR ( Amer) > 60 Est GFR (Non-Af Amer) > 60 Glucose 126 H Calcium 9.4 Total Bilirubin 1.4 H AST 575 H ALT 577 H Alkaline Phosphatase 190 H Total Protein 7.1 Albumin 4.0 Triglycerides Lipase 6649.2 H Serum HCG, Qual NEGATIVE Urine Color Urine Appearance Urine pH Ur Specific [place] Urine Protein Urine Glucose (UA) Urine Ketones Urine Blood Urine Nitrite Ur Leukocyte Esterase Urine WBC (Auto) Urine RBC (Auto) 01/27/18 01/27/18 06:00 09:51 WBC RBC Hgb Hct MCV MCH MCHC RDW Plt Count Seg Neutrophils % Lymphocytes % Monocytes % Eosinophils % Basophils % Absolute Neutrophils Absolute Lymphocytes Absolute Monocytes Absolute Eosinophils Absolute Basophils Sodium Potassium Chloride Carbon Dioxide Anion Gap BUN Creatinine Est GFR ( Amer) Est GFR (Non-Af Amer) Glucose Calcium Total Bilirubin AST ALT Alkaline Phosphatase Total Protein Albumin Triglycerides 60 Lipase Serum HCG, Qual Urine Color YELLOW Urine Appearance SLIGHTLY-CLOUDY Urine pH 6.0 Ur Specific [place] 1.002 Urine Protein NEGATIVE Urine Glucose (UA) NEGATIVE Urine Ketones NEGATIVE Urine Blood MODERATE H Urine Nitrite NEGATIVE Ur Leukocyte Esterase TRACE H Urine WBC (Auto) 2 Urine RBC (Auto) 2 01/27/18 06:00 Troponin I < 0.012 Impressions: Abdomen/Pelvis CT 01/27/18 00:00 IMPRESSION: CT FINDINGS COMPATIBLE WITH ACUTE CHOLECYSTITIS. SURGICAL CONSULTATION RECOMMENDED. Assessment & Plan - Diagnosis (1) Acute gallstone pancreatitis Is this a current diagnosis for this admission?: Yes - Plan Summary Plan Summary: A/ Acute pancreatitis (chemical) Acute cholecystitis on Ct scan A/P done today) No gallstones identified on previous US of GB (01/26/18) or on CT scan done today Elevation of LFT's with total bilirubin 1.4 negative test P/ Admit NPO IVF Zosyn for cholangitis prophylaxis repeat GB US today MRCP tomorrow to evaluate the bile ducts for possible choledocholithiasis which will require preoperative ERCP Daily monitoring of blood work (including CBC, CMP, lipase) Once symptoms have abated and the lipase is getting close to acceptable values, laparoscopic cholecystectomy can be planned during this hospitalization
[2018-01-27] MEDS ORDERED: ONDANSETRON HCL INJ/PF 4 MG/2 ML SDV IV PRN (14:26)
[2018-01-27] MEDS ORDERED: MORPHINE SULFATE 10 MG/ML INJ INJ PRN (14:26)
--- NOTE | 2018-01-27 14:37 | RADIOLOGY REPORT (SQ) ---
EXAM DESCRIPTION: U/S ABDOMEN LIMITED W/O DOP COMPLETED DATE/TIME: 01/27/2018 2:25 pm REASON FOR STUDY: acute ella pancreatitis today eval obstruction COMPARISON: CT from 01/27/2018. TECHNIQUE: Dynamic and static grayscale images acquired of the abdomen and recorded on PACS. Additio nal selected color Doppler and spectral images recorded. LIMITATIONS: None. FINDINGS: PANCREAS: No masses. Visualized pancreatic duct normal caliber. LIVER: No masses. Echotexture normal. LIVER VASCULATURE: Normal directional flow of the main portal vein and hepatic veins. GALLBLADDER: Stones visualized within the cystic duct. Mild gallbladder wall thickening/ pericholecy stic fluid. ULTRASOUND-DETECTED AGUILAR'S SIGN: Negative. INTRAHEPATIC DUCTS AND COMMON DUCT: CBD and intrahepatic ducts normal caliber. No filling defects. INFERIOR VENA CAVA: Normal flow. AORTA: No aneurysm. RIGHT KIDNEY: Normal size. Normal echogenicity. No solid or suspicious masses. No hydronephrosis. No calcifications. PERITONEAL AND RIGHT PLEURAL SPACE: No ascites or effusions. OTHER: No other significant findings. IMPRESSION: MILD GALLBLADDER WALL THICKENING/ PERICHOLECYSTIC FLUID IS SEEN ON PRIOR CT WITH STONES IDENTIFIED IN THE CYSTIC DUCT. ULTRASOUND FINDINGS ARE INDETERMINATE FOR ACUTE CHOLECYSTITIS. TECHNICAL DOCUMENTATION: JOB ID: [id number] [employer]- All Rights Reserved Reading location - IP/workstation name: [email or web address]
--- NOTE | 2018-01-27 15:25 | RADIOLOGY REPORT (SQ) ---
EXAM DESCRIPTION: MRI ABDOMEN WITHOUT COMPLETED DATE/TIME: 01/27/2018 3:05 pm REASON FOR STUDY: evaluate CBD for retained stones COMPARISON: Ultrasound and CT from 01/27/2018 TECHNIQUE: Noncontrast MRCP. Source and MIP images reviewed. LIMITATIONS: None. FINDINGS: GALLBLADDER: A couple of dependent stones. Gallbladder wall thickening and pericholecysti c fluid. Stones again seen within the cystic duct. INTRAHEPATIC DUCTS: Nondilated. EXTRAHEPATIC DUCTS: Common duct is normal caliber. No dilatation of the pancreatic duct. No ductal filling defects noted. PANCREAS: Generally homogeneous, no gross mass or significant signal alteration. No surrounding infl ammatory changes or fluid. Pancreatic duct is normal. LIVER, SPLEEN, KIDNEYS, ADRENALS: No significant abnormality. VESSELS: No evidence of aneurysm. Grossly appropriate flow voids in the major vascular structures. LUNG BASES: Grossly clear. OTHER: No other significant finding. IMPRESSION: AGAIN SEEN IS GALLBLADDER WALL THICKENING AND PERICHOLECYSTIC FLUID IN THE SETTING OF CH OLELITHIASIS WITH STONE SEEN IN THE CYSTIC DUCT AGAIN SUSPICIOUS FOR ACUTE CHOLECYSTITIS. NO STONES IDENTIFIED WITHIN THE COMMON BILE DUCT. TECHNICAL DOCUMENTATION: JOB ID: [id number] [employer]- All Rights Reserved Reading location - IP/workstation name: [email or web address]
[2018-01-27] MEDS: KETOROLAC TROMETHAMINE INJ/PF 30 MG/1 ML SDV IV PRN (16:22)
[2018-01-27] MEDS: PIPERACILLIN SODIUM/TAZOBACTAM 3.375 GM in NORMAL SALINE 100 ML IV SCH ×2 (17:24→23:08)
[2018-01-27] MEDS: FAMOTIDINE INJ/PF 20 MG/2 ML SDV IV SCH (21:52)
[2018-01-27] MEDS: NORMAL SALINE 1000 ML 1,000 ML IV PRN (23:08)
[2018-01-28] MEDS: PIPERACILLIN SODIUM/TAZOBACTAM 3.375 GM in NORMAL SALINE 100 ML IV SCH ×4 (05:06→23:27)
[2018-01-28 06:06] LABS: ABSOLUTE EOSINOPHILS # (AUTO) 0.1 10^3/uL (0.0-0.6); ABSOLUTE LYMPHOCYTES (AUTO) 1.5 10^3/uL (0.5-4.7); ABSOLUTE MONOCYTES (AUTO) 0.3 10^3/uL (0.1-1.4); BASOPHILS % (AUTO) 0.6 % (0-2); EOSINOPHILS % (AUTO) 1.2 % (0-6); HEMOGLOBIN 11.5 g/dL (12.0-15.5); LYMPHOCYTES % (AUTO) 25.6 % (13-45); MEAN CORPUSCULAR HGB CONC 33.8 g/dL (32.0-36.0); MEAN CORPUSCULAR VOLUME 83 fl (80-97); MONOCYTES % (AUTO) 4.5 % (3-13); PLATELET COUNT 201 10^3/uL (150-450); RED BLOOD COUNT 4.11 10^6/uL (3.72-5.28); RED CELL DISTRIBUTION WIDTH 14.7 % (11.5-14.0); SEGMENTED NEUTROPHILS % (AUTO) 68.1 % (42-78); TOTAL CELLS COUNTED % (AUTO) 100 %; WHITE BLOOD COUNT 5.9 10^3/uL (4.0-10.5)
[2018-01-28 06:32] LABS: ALANINE AMINOTRANSFERASE 294 U/L (9-52); ALKALINE PHOSPHATASE 139 U/L (38-126); AMYLASE 217 U/L (30-110); ANION GAP 8 (5-19); ASPARTATE AMINO TRANSFERASE 131 U/L (14-36); BILIRUBIN,DIRECT 0.4 mg/dL (0.0-0.4); BILIRUBIN,TOTAL 0.6 mg/dL (0.2-1.3); BLOOD UREA NITROGEN 13 mg/dL (7-20); CALCIUM 8.4 mg/dL (8.4-10.2); CARBON DIOXIDE 23 mmol/L (22-30); CHLORIDE 113 mmol/L (98-107); GLUCOSE 86 mg/dL (75-110); LIPASE 369.7 U/L (23-300); POTASSIUM 3.7 mmol/L (3.6-5.0); SODIUM 143.6 mmol/L (137-145); TOTAL PROTEIN 5.5 g/dL (6.3-8.2)
[2018-01-28] MEDS: NORMAL SALINE 1000 ML 1,000 ML IV PRN (06:40)
[2018-01-28] MEDS ORDERED: ENOXAPARIN SODIUM INJ 40 MG/0.4 ML DISP.SYRIN SUBCUT SCH (10:00)
[2018-01-28] MEDS: FAMOTIDINE INJ/PF 20 MG/2 ML SDV IV SCH ×2 (10:29→23:27)
[2018-01-28] MEDS: KETOROLAC TROMETHAMINE INJ/PF 30 MG/1 ML SDV IV PRN (10:33)
[2018-01-28] MEDS ORDERED: BUPIVACAINE HCL 0.25 % INJ/PF (2.5 MG/1 ML) 30 ML VIAL ONE (13:30)
[2018-01-28] MEDS ORDERED: DEXAMETHASONE SOD PHOSPHATE INJ 4 MG/1 ML VIAL ONE (13:44)
[2018-01-28] MEDS ORDERED: ONDANSETRON HCL INJ/PF 4 MG/2 ML SDV ONE (13:44)
[2018-01-28] MEDS ORDERED: ROCURONIUM BROMIDE INJ 50 MG/5 ML VIAL IV ONE (13:44)
[2018-01-28] MEDS ORDERED: LIDOCAINE 2% INJ-PF (20 MG/ML) 2 ML AMPUL ONE (13:44)
[2018-01-28] MEDS ORDERED: METOCLOPRAMIDE HCL INJ/PF 10 MG/2 ML SDV ONE (13:44)
[2018-01-28] MEDS ORDERED: KETOROLAC TROMETHAMINE 60 MG/2 ML SDV ONE (13:44)
[2018-01-28] MEDS ORDERED: GLYCOPYRROLATE INJ 0.4 MG/2 ML VIAL ONE (13:44)
[2018-01-28] MEDS ORDERED: NEOSTIGMINE METHYLSULFATE 10 MG/10 ML VIAL ONE (13:44)
[2018-01-28] MEDS ORDERED: SUCCINYLCHOLINE CHLORIDE INJ 200 MG/10 ML VIAL ONE (13:44)
[2018-01-28] MEDS ORDERED: FENTANYL CITRATE INJ/PF 100 MCG/2 ML AMPUL ONE (13:50)
[2018-01-28] MEDS ORDERED: EPHEDRINE SULFATE INJ 50 MG/1 ML AMPULE ONE (13:51)
[2018-01-28] MEDS ORDERED: MIDAZOLAM 2 MG/2 ML INJ ONE (13:51)
[2018-01-28] MEDS ORDERED: PROPOFOL INJ 200 MG/20 ML VIAL IV ONE (13:51)
[2018-01-28] MEDS ORDERED: ACETAMINOPHEN 100 ML IV ONE (13:51)
[2018-01-28] MEDS ORDERED: FENTANYL CITRATE INJ/PF 100 MCG/2 ML AMPUL IV PRN ×3 (14:56)
[2018-01-28] MEDS ORDERED: OXYCODONE-ACETAMINOPHEN 5-325 MG TABLET PO PRN ×2 (14:56)
[2018-01-28] MEDS ORDERED: PROMETHAZINE HCL INJ 25 MG/1 ML VIAL IV PRN ×2 (14:56)
[2018-01-28] MEDS ORDERED: DIPHENHYDRAMINE HCL 50 MG/ML VIAL IV PRN (14:56)
[2018-01-28] MEDS ORDERED: ONDANSETRON HCL INJ/PF 4 MG/2 ML SDV IV PRN ×2 (14:56→16:14)
[2018-01-28] MEDS ORDERED: MEPERIDINE HCL/PF INJ 25 MG/1 ML DISP.SYRIN IV PRN (14:56)
--- NOTE | 2018-01-28 15:52 | RADIOLOGY REPORT (SQ) ---
EXAM DESCRIPTION: CHOLANGIOGRAM OPERATIVE COMPLETED DATE/TIME: 01/28/2018 3:32 pm REASON FOR STUDY: CHOLANGIOGRAM IN OR COMPARISON: MRI abdomen 01/27/2018 Right upper quadrant ultrasound 01/27/2018 CT abdomen pelvis 01/27/2018 FLUOROSCOPY TIME: 10 seconds 5 digital radiographic images saved to PACS. TECHNIQUE: Cinegraphic images were obtained from an intraoperative cholangiogram. LIMITATIONS: Motion artifact FINDINGS: Motion artifact. Contrast injected through the cystic duct stump. No gross filling defec ts along the common hepatic or common bile duct. Spillage of contrast into the duodenum. IMPRESSION: INTRAOPERATIVE CHOLANGIOGRAM. COMMENT: Quality ID [id number]: Final reports for procedures using fluoroscopy that document radiation exp osure indices, or exposure time and number of fluorographic images (if radiation exposure indices are not available) TECHNICAL DOCUMENTATION: JOB ID: [id number] [employer]- All Rights Reserved Reading location - IP/workstation name: [email or web address]
[2018-01-28] MEDS ORDERED: PROMETHAZINE HCL INJ 25 MG/1 ML VIAL ONE (15:59)
[2018-01-28] MEDS ORDERED: KETOROLAC TROMETHAMINE 10 MG TABLET PO PRN (16:14)
--- NOTE | 2018-01-28 16:24 | Operative Report ---
Operative Report DATE OF SURGERY: 01/28/18 PREOPERATIVE DIAGNOSIS: 1. Gallstone pancreatitis. 2. Chronic cholecystitis POSTOPERATIVE DIAGNOSIS: Same OPERATION: 1. Laparoscopic cholecystectomy. 2. Intraoperative cholangiography. 3. Interpretation of intraoperative cholangiography SURGEON: LUNA MORRIS ANESTHESIA: GA TISSUE REMOVED OR ALTERED: 1 gallbladder with contents COMPLICATIONS: None ESTIMATED BLOOD LOSS: Scant INTRAOPERATIVE FINDINGS: See below PROCEDURE: After obtaining informed consent, the patient was taken to the operating room. General Anesthesia was induced; the arms were extended, and the abdomen was exposed, and prepped and draped in a sterile fashion. Instrumentation was set up for laparoscopic cholecystectomy. Surgical plan and surgical timeout were conducted. A vertical incision was made above the umbilicus, and a verres needle was inserted uneventfully into the peritoneal cavity. Pneumoperitoneum was established. The verres needle was removed and a 5 mm trocar was inserted and a 5 mm flexible laparoscope was inserted. Visualization of the peritoneal cavity confirmed safe uneventful entry. Under direct visualization 3 additional 5 mm ports were established, one in the subxiphoid position and second in the subcostal position. The gallbladder was enlarged, with mildly edematous wall consistent with cholecystitis. Visualization of the hepatobiliary anatomy revealed no anatomic variations. A grasper was placed on the fundus of the gallbladder and the gallbladder is elevated over the right surface of the liver; a second grasper was used to grasp the infundibulum of the gallbladder. The neck of the gallbladder and junction with the cystic duct was dissected out. The Cystic artery was in its usual location medial and cephalad to the cystic duct. The node of Calot low was kept inferiorly. The cystic artery was surrounded with a right angle clamp , clipped twice proximally and divided with laparoscopic scissors. We now opened the triangle of Calot by dividing the peritoneal reflection on both the medial and lateral sides of the cystic duct infundibular junction. The critical view was obtained. We now milked the cystic duct of any possible stones, clipped the cystic duct 1 time distally then made a small opening in the cystic duct proximal to the clip with laparoscopic scissors. We now placed a percutaneous cholangiogram catheter through the skin at a separate stab site made with a #11 blade. The cholangiogram catheter was threaded into the cystic duct stump for approximately 1/2 cm and clipped into place The patient was leveled out, laparoscopic instruments removed from the peritoneal cavity and full-strength Isovue was used to image the biliary ductal system. A series of intraoperative cholangiograms were shot and interpreted as revealing near complete visualization of the biliary tree however the distal common bile duct was not visualized due to limited contrast. There was no extravasation. The duodenum opacified rapidly. Clinical impression was that this was a relatively normal angiogram. We returned the peritoneal cavity with instrumentation remove the clip securing the catheter into position, doubly clipped the cystic duct proximally after removing the catheter and then divided the cystic duct proper. The gallbladder was now removed from the undersurface of the liver using hook cautery dissection. Graspers were repositioned and the gallbladder was removed uneventfully from the abdominal cavity through the super umbilical port site incision. The specimen was examined, then passed off to pathology for permanent analysis. We returned to the peritoneal cavity check for bleeding, and evidence of bile leak, and there was none. We Confirmed satisfactory placement of clips on cystic duct and cystic artery were secured . At this point we felt the operation was complete. The subcutaneous tissue was then anesthetized with quarter percent Marcaine Sponge and needle counts are correct. We did closed the supraumbilical port site with a single 0 Vicryl [id number] suture using the percutaneous suture passer. All ports removed under direct visualization pneumoperitoneum evacuated, and 5 mm port wounds closed with 3-0 Vicryl suture, benzoin and Steri-Strips. The patient was extubated, and taken to the recovery room in stable condition.
[2018-01-28] MEDS ORDERED: DOCUSATE SODIUM 100 MG CAPSULE PO SCH (18:00)
[2018-01-29] MEDS: PIPERACILLIN SODIUM/TAZOBACTAM 3.375 GM in NORMAL SALINE 100 ML IV SCH (06:00)
[2018-01-29] MEDS: NORMAL SALINE 1000 ML 1,000 ML IV PRN (06:01)
[2018-01-29 07:36] VITALS: BP 130/79
[2018-01-29 07:42] LABS: ABSOLUTE LYMPHOCYTES (AUTO) 0.9 10^3/uL (0.5-4.7); ABSOLUTE MONOCYTES (AUTO) 0.3 10^3/uL (0.1-1.4); ABSOLUTE NEUT (AUTO) 9.2 10^3/uL (1.7-8.2); BASOPHILS % (AUTO) 0.2 % (0-2); HEMATOCRIT 34.3 % (36.0-47.0); HEMOGLOBIN 11.6 g/dL (12.0-15.5); LYMPHOCYTES % (AUTO) 8.7 % (13-45); MEAN CORPUSCULAR HEMOGLOBIN 27.9 pg (27.0-33.4); MEAN CORPUSCULAR HGB CONC 33.8 g/dL (32.0-36.0); MEAN CORPUSCULAR VOLUME 82 fl (80-97); MONOCYTES % (AUTO) 2.7 % (3-13); PLATELET COUNT 253 10^3/uL (150-450); RED BLOOD COUNT 4.16 10^6/uL (3.72-5.28); RED CELL DISTRIBUTION WIDTH 14.6 % (11.5-14.0); SEGMENTED NEUTROPHILS % (AUTO) 88.4 % (42-78); TOTAL CELLS COUNTED % (AUTO) 100 %; WHITE BLOOD COUNT 10.4 10^3/uL (4.0-10.5)
[2018-01-29 08:01] LABS: ALANINE AMINOTRANSFERASE 230 U/L (9-52); ALBUMIN 3.4 g/dL (3.5-5.0); ALKALINE PHOSPHATASE 144 U/L (38-126); AMYLASE 72 U/L (30-110); ANION GAP 11 (5-19); ASPARTATE AMINO TRANSFERASE 58 U/L (14-36); BILIRUBIN,DIRECT 0.2 mg/dL (0.0-0.4); BILIRUBIN,TOTAL 0.3 mg/dL (0.2-1.3); BLOOD UREA NITROGEN 9 mg/dL (7-20); CALCIUM 9.4 mg/dL (8.4-10.2); CARBON DIOXIDE 20 mmol/L (22-30); CHLORIDE 111 mmol/L (98-107); GLUCOSE 144 mg/dL (75-110); LIPASE 105.9 U/L (23-300); POTASSIUM 4.2 mmol/L (3.6-5.0); SODIUM 142.4 mmol/L (137-145); TOTAL PROTEIN 5.9 g/dL (6.3-8.2)
--- NOTE | 2018-01-29 09:12 | PDOC PROGRESS REPORT ---
Subjective Progress Note for:: 01/29/18 Subjective:: patient comfortable, tolerates po well, passes flatus Reason For Visit: ACUTE CHOLECYSTITIS, ACUTE PANCREATITIS Physical Exam Vital Signs: Temp Pulse Resp BP Pulse Ox 97.8 F 49 L 18 130/79 H 97 01/29/18 07:36 01/29/18 07:36 01/29/18 07:36 01/29/18 07:36 01/29/18 07:36 Intake & Output 01/28/18 01/29/18 01/30/18 06:59 06:59 06:59 Intake Total 450 3925 Output Total 1775 Balance 450 2150 General appearance: PRESENT: no acute distress Respiratory exam: PRESENT: clear to auscultation epi Cardiovascular exam: PRESENT: RRR GI/Abdominal exam: PRESENT: soft, other - all incisions are C/D/I Results Laboratory Results: 01/29/18 06:45 01/29/18 06:45 01/29/18 01/29/18 06:45 06:45 WBC 10.4 RBC 4.16 Hgb 11.6 L Hct 34.3 L MCV 82 MCH 27.9 MCHC 33.8 RDW 14.6 H Plt Count 253 Seg Neutrophils % 88.4 H Lymphocytes % 8.7 L Monocytes % 2.7 L Eosinophils % 0.0 Basophils % 0.2 Absolute Neutrophils 9.2 H Absolute Lymphocytes 0.9 Absolute Monocytes 0.3 Absolute Eosinophils 0.0 Absolute Basophils 0.0 Sodium 142.4 Potassium 4.2 Chloride 111 H Carbon Dioxide 20 L Anion Gap 11 BUN 9 Creatinine 0.71 Est GFR ( Amer) > 60 Est GFR (Non-Af Amer) > 60 Glucose 144 H Calcium 9.4 Total Bilirubin 0.3 AST 58 H ALT 230 H Alkaline Phosphatase 144 H Total Protein 5.9 L Albumin 3.4 L Amylase 72 Lipase 105.9 Impressions: Abdomen MRI 01/27/18 00:00 IMPRESSION: AGAIN SEEN IS GALLBLADDER WALL THICKENING AND PERICHOLECYSTIC FLUID IN THE SETTING OF CHOLELITHIASIS WITH STONE SEEN IN THE CYSTIC DUCT AGAIN SUSPICIOUS FOR ACUTE CHOLECYSTITIS. NO STONES IDENTIFIED WITHIN THE COMMON BILE DUCT. Abdomen/Pelvis CT 01/27/18 00:00 IMPRESSION: CT FINDINGS COMPATIBLE WITH ACUTE CHOLECYSTITIS. SURGICAL CONSULTATION RECOMMENDED. Abdomen Ultrasound 01/27/18 13:37 IMPRESSION: MILD GALLBLADDER WALL THICKENING/ PERICHOLECYSTIC FLUID IS SEEN ON PRIOR CT WITH STONES IDENTIFIED IN THE CYSTIC DUCT. ULTRASOUND FINDINGS ARE INDETERMINATE FOR ACUTE CHOLECYSTITIS. Cholangiogram 01/28/18 00:00 IMPRESSION: INTRAOPERATIVE CHOLANGIOGRAM. Assessment & Plan - Diagnosis (1) Acute gallstone pancreatitis Is this a current diagnosis for this admission?: Yes - Plan Summary Plan Summary: A/ POD #1 after laparoscopic cholecystectomy VSS, AF Blood work WNL PE unremarkable P/ Home today Resume meds, diet, all activities without limitation Follow up with General Surgery office JANAE Salguero in 1 week Tylenol as needed for pain No wound care needed
--- NOTE | 2018-01-29 09:47 | DISCHARGE SUMMARY E ---
Discharge Summary NAME: EDMUNDO BRADY : 1990 AGE: 27Y ADMITTED: 01/27/2018 DISCHARGED: 01/29/2018 FINAL DIAGNOSES: 1. Gastric pancreatitis. 2. Chronic cholecystitis. 3. Morbid obesity. PROCEDURE: 1. Laparoscopic cholecystectomy on January 28. 2. Intraoperative cholangiogram on January 28. COMPLICATIONS: None. HOSPITAL COURSE: This is a morbidly obese 27-year-old female admitted on 01/27/18 because of a complaining of abdominal pain, nausea, and vomiting. Found to have elevated lipase about 6000 on admission and cholelithiasis as well on ultrasound. The patient was admitted on January 27. She was kept n.p.o. on IV fluids. Her blood work improved on January 28 with a lipase of only 369 on the day of surgery and she underwent uneventful laparoscopic cholecystectomy with intraoperative cholangiogram. Her postoperative course was unremarkable. She was kept on IV fluids and IV pain medication. Continued on IV antibiotics. Her diet was advanced to regular. On the day of discharge, the patient had no complaints. She was passing flatus. She was eating p.o. well. Her blood work was within normal limits with liver profile improved with a decrease AST, ALT, alkaline phosphatase. The lipase was normal at 105. The bilirubin was normal at 0.4. White blood cell count was normal at 10.4. Physical exam was unremarkable. Her incision was clean, dry, and intact. She was discharged on January 29. DISCHARGE ORDERS: She was discharged on January 29, 2018. She was given a followup appointment with general surgery PA, Lisa Martinez, in about a week. She was instructed to take Tylenol as needed for pain. Resume all medications, diet, and all activities without restriction. No wound care needed. The patient can shower immediately and bath in 2 weeks. DICTATING PHYSICIAN: WHITNEY LOGAN M.D. [id number] PHY#: [id number] ID: [id number] JOB#: [id number] ACCT: [id number] cc:WHITNEY LOGAN M.D., E. RRen > [facility]
== END 2018-01-29 10:00 | disposition home or self-care (01) | DRG 418 ==
LOC: ER 05:14 → EH 14:02 → 2N 15:50
PROVIDERS: ADMIT Surgery; ATTEND Surgery
PROC: BF001ZZ Plain Radiography of Bile Ducts using Low Osmolar Contrast (ICD-10-PCS; 2018-01-28)
PROC: 0FT44ZZ Resection of Gallbladder, Percutaneous Endoscopic Approach (ICD-10-PCS; principal; 2018-01-28 14:30)
DX: K85.10 Biliary acute pancreatitis without necrosis or infection (principal); K80.12 Calculus of gallbladder with acute and chronic cholecystitis without obstruction; Z68.41 Body mass index [BMI] 40.0-44.9, adult; E66.01 Morbid (severe) obesity due to excess calories; Z79.899 Other long term (current) drug therapy
CPT/HCPCS: 36415; 74177; 74181; 74300; 76705; 790; 80053; 80307; 81001; 82150; 83615; 83690; 84478; 84484; 84703; 85025; 87040; 87086; 88304; 93005; 93010; 96361; 96365; 96372; 96375; 99285; J0131; J0330; J0500; J1100; J1200; J1650; J1885; J2250; J2270; J2405; J2543; J2550; J2704; J2765; J3010; J3490; J7030; S0028

== ENCOUNTER 2018-03-21 05:27 | Day surgery (SDC) | payer OTHER ==
[2018-03-15 12:12] LABS: HEMOGLOBIN 12.1 g/dL (12.0-15.5); MEAN CORPUSCULAR HEMOGLOBIN 28.7 pg (27.0-33.4); MEAN CORPUSCULAR HGB CONC 34.7 g/dL (32.0-36.0); MEAN CORPUSCULAR VOLUME 83 fl (80-97); PLATELET COUNT 276 10^3/uL (150-450); RED BLOOD COUNT 4.23 10^6/uL (3.72-5.28); RED CELL DISTRIBUTION WIDTH 14.8 % (11.5-14.0); WHITE BLOOD COUNT 6.3 10^3/uL (4.0-10.5)
[2018-03-15 12:20] LABS: APPEARANCE,URINE CLEAR; BILIRUBIN,URINE NEGATIVE (NEGATIVE); COLOR,URINE YELLOW; GLUCOSE, URINE NEGATIVE (NEGATIVE); KETONES,URINE NEGATIVE (NEGATIVE); LEUKOCYTE ESTERASE,URINE SMALL (NEGATIVE); NITRITE,URINE NEGATIVE (NEGATIVE); PROTEIN,URINE NEGATIVE (NEGATIVE); UROBILINOGEN,URINE NEGATIVE mg/dL (<2.0)
[~2018-03-21 05:27] MED LIST: LACTATED RINGERS 1000 ML IV PRN; LIDOCAINE 0.5% INJ-PF (5 MG/ML) 50 ML SDV SUBCUT PRN
[2018-03-21] MEDS ORDERED: KETOROLAC TROMETHAMINE 60 MG/2 ML SDV ONE (06:43)
[2018-03-21] MEDS ORDERED: ONDANSETRON HCL INJ/PF 4 MG/2 ML SDV ONE ×2 (06:43→09:07)
[2018-03-21] MEDS ORDERED: MIDAZOLAM 2 MG/2 ML INJ ONE (06:43)
[2018-03-21] MEDS ORDERED: DEXAMETHASONE SOD PHOSPHATE INJ 4 MG/1 ML VIAL ONE (06:43)
[2018-03-21] MEDS ORDERED: HYDROMORPHONE HCL INJ/PF 2 MG/ML AMPULE ONE (06:44)
[2018-03-21] MEDS ORDERED: PROPOFOL INJ 200 MG/20 ML VIAL IV ONE (06:44)
[2018-03-21] MEDS ORDERED: ACETAMINOPHEN 1,000 MG/100 ML RTUPB IV ONE (06:44)
[2018-03-21] MEDS ORDERED: BUPIVACAINE HCL 0.25 % INJ/PF (2.5 MG/1 ML) 30 ML VIAL ONE (06:46)
[2018-03-21] MEDS ORDERED: MEPERIDINE HCL/PF INJ 25 MG/1 ML DISP.SYRIN IV PRN (07:43)
[2018-03-21] MEDS ORDERED: MORPHINE SULFATE 10 MG/ML INJ IV PRN (07:43)
[2018-03-21] MEDS ORDERED: OXYCODONE-ACETAMINOPHEN 5-325 MG TABLET PO PRN ×4 (07:43→09:08)
[2018-03-21] MEDS ORDERED: DIPHENHYDRAMINE HCL 50 MG/ML VIAL IV PRN (07:43)
[2018-03-21] MEDS ORDERED: PROMETHAZINE HCL INJ 25 MG/1 ML VIAL IV PRN ×2 (07:43)
[2018-03-21] MEDS ORDERED: FENTANYL CITRATE INJ/PF 100 MCG/2 ML AMPUL IV PRN ×3 (07:43)
[2018-03-21] MEDS ORDERED: ONDANSETRON HCL INJ/PF 4 MG/2 ML SDV IV PRN (09:04)
[2018-03-21] MEDS ORDERED: RINGERS SOLUTION,LACTATED 1,000 ML IV PRN (09:05)
[2018-03-21] MEDS ORDERED: HYDROMORPHONE HCL INJ/PF 2 MG/ML AMPULE IV PRN (09:05)
[2018-03-21] MEDS ORDERED: IBUPROFEN 800 MG TABLET PO PRN (09:06)
[2018-03-21] MEDS ORDERED: SCOPOLAMINE HYDROBROMIDE 1.5 MG PATCH.TD72 ONE (09:07)
[2018-03-21] MEDS ORDERED: PROMETHAZINE HCL INJ 25 MG/1 ML VIAL ONE (09:41)
[2018-03-21 11:51] VITALS: BP 119/74
[2018-03-21] MEDS ORDERED: ROCURONIUM BROMIDE INJ 50 MG/5 ML VIAL IV ONE (15:26)
== END 2018-03-21 11:35 | disposition home or self-care (01) ==
LOC: OROUT 05:27
PROVIDERS: ATTEND Student in an Organized Health Care Education/Training Program
DX: Z30.2 Encounter for sterilization (principal); N83.8 Other noninflammatory disorders of ovary, fallopian tube and broad ligament; N73.6 Female pelvic peritoneal adhesions (postinfective); E66.9 Obesity, unspecified; Z68.41 Body mass index [BMI] 40.0-44.9, adult
CPT/HCPCS: 36415; 85027; 81025; 81001; 88302 ×2; 58661; J2250; J3490; J1100; J1885; J1170; J2550; J2405; J2704; J0131; 840

== ENCOUNTER → 2020-05-03 | Outpatient (CLI) | payer OTHER, MEDICAID ==
--- NOTE | 2020-05-03 15:23 | RADIOLOGY REPORT (SQ) ---
EXAM DESCRIPTION: CT HEAD WITHOUT IMAGES COMPLETED DATE/TIME: 05/03/2020 3:09 pm REASON FOR STUDY: R51 HEADACHE R51 HEADACHE COMPARISON: None. TECHNIQUE: Axial images acquired through the brain without intravenous contrast. Images reviewed wi th bone, brain and subdural windows. Additional sagittal and coronal reconstructions were generated. Images stored on PACS. All CT scanners at this facility use dose modulation, iterative reconstruction, and/or weight based d osing when appropriate to reduce radiation dose to as low as reasonably achievable (ALARA). [facility]: Dose Right [facility]: CareDose [facility]: Dose Right [facility]: Teradose 4D [facility]: Webmedx RADIATION DOSE: CT Rad equipment meets quality standard of care and radiation dose reduction techniq ues were employed. CTDIvol: 53.2 mGy. DLP: 1044 mGy-cm. mGy. LIMITATIONS: None. FINDINGS: VENTRICLES: Normal size and contour. CEREBRUM: No masses. No hemorrhage. No midline shift. No evidence for acute infarction. Normal gra y/white matter differentiation. No areas of low density in the white matter. CEREBELLUM: No masses. No hemorrhage. No alteration of density. No evidence for acute infarction. EXTRAAXIAL SPACES: No fluid collections. No masses. ORBITS AND GLOBE: No intra- or extraconal masses. Normal contour of globe without masses. CALVARIUM: No fracture. PARANASAL SINUSES: No fluid or mucosal thickening. SOFT TISSUES: No mass or hematoma. OTHER: No other significant finding. IMPRESSION: NORMAL BRAIN CT WITHOUT CONTRAST. EVIDENCE OF ACUTE STROKE: NO. COMMENT: Quality ID # [id number]: Final reports with documentation of one or more dose reduction techniques (e.g., Automated exposure control, adjustment of the mA and/or kV according to patient size, use of iterative reconstruction technique) TECHNICAL DOCUMENTATION: JOB ID: [id number] 2010 [employer]- All Rights Reserved Reading location - IP/workstation name: [email or web address]
== END ==
LOC: RAD 14:09
PROVIDERS: ATTEND Physician Assistant
DX: R51 Headache (principal)
CPT/HCPCS: 70450